=== PATIENT | female | born 1970 | race Caucasian/White ===

== ENCOUNTER 2017-07-08 09:03 | Observation (INO) ==
--- NOTE | 2017-07-08 09:53 | Emergency Department Note ---
Disposition Clinical Impression: Diabetic foot ulcer Qualifiers: Diabetic foot ulcer location: unspecified part of foot Diabetes mellitus type: other specified (including RICHIE) Laterality: left Non-pressure ulcer stage: unspecified non-pressure ulcer stage Qualified Code(s): E13.621 - Other specified diabetes mellitus with foot ulcer; L97.529 - Non-pressure chronic ulcer of other part of left foot with unspecified severity; L97.529 - Non- pressure chronic ulcer of other part of left foot with unspecified severity; L97.529 - Non-pressure chronic ulcer of other part of left foot with unspecified severity; L97.529 - Non-pressure chronic ulcer of other part of left foot with unspecified severity Disposition: Still a Patient Condition: Fair Referrals: NONE,PCP [Primary Care Provider] - Forms: ED Satisfaction Letter, Work/School Release Time of Disposition: 10:59 Extremity Problem HPI - General Chief complaint: ED General Medical Stated complaint: Wound left foot Time Seen by Provider: 07/08/17 09:19 Source: patient Limitations: no limitations Nursing Notes Reviewed: Yes Vital Signs Reviewed: Yes - History of Present Illness HPI Narrative: [id number] 46-year-old female presents for evaluation of a left foot ulcer she states she has been treating this wound at home for the past several months and has seen a home theater specialist at [facility]. She states in the past 3 days, she experienced worsening fatigue, generalized malaise, and nausea. She states that the area has gotten more tender the touch and is now draining a purulent and foul-smelling discharge. She denies any overt fevers, vomiting, or altered mentation. She states that her home theater specialist contacted her stating that the wound cultures obtained revealed that IV antibiotics would be necessary. She also states that she believes she may be "due for a blood transfusion", as her last hemoglobin level obtained 2 weeks ago was 8.0. Pt Subjective Complaint: other (left foot wound) Onset (ago): month(s) Injury Location: left, other (foot) Pain Scale: 3 Quality: aching Improves with: nothing Worsens with: weight bearing, palpation Associated symptoms: Reports: other (fatigue, nausea). Denies: fever - Related Data Allergies Allergy/AdvReac Type Severity Reaction Status Date / Time vancomycin AdvReac See Verified 03/30/18 09:11 Comments All systems ED: reviewed and negative except as stated. Constitutional: Denies: fever, chills, weakness, weight change Eyes: Denies: eye pain, eye discharge, vision change ENT ED: Denies: ear pain, throat pain, dental pain, hearing loss, epistaxis, congestion, dysphagia Cardiovascular: Denies: chest pain, palpitations, dyspnea on exertion, edema, syncope Respiratory: Denies: cough, dyspnea, wheezes, hemoptysis, stridor Gastrointestinal: Denies: abdominal pain, nausea, vomiting, diarrhea, constipation, hematemesis, melena, hematochezia Genitourinary: Denies: dysuria, frequency, hematuria, discharge Musculoskeletal: Denies: back pain, neck pain, arthralgia, myalgia Integumentary: Reports: as per HPI, other (Left foot ulcer). Denies: rash, abrasion, lesions Neurological: Denies: headache, weakness, numbness, paresthesias, confusion, abnormal gait, vertigo Psychiatric: Denies: anxiety, depression, suicidal thoughts, homicidal thoughts , auditory hallucinations, visual hallucinations Endocrine: Denies: fatigue Hematological/Lymphatic: Denies: easy bleeding, easy bruising Allergic/Immunologic: Denies: facial swelling, urticaria Past Medical History - Past Medical History Attestation: Yes The following information was validated with the patient. Source: patient, nursing notes reviewed Medical history: Reports: diabetes, hyperlipidemia, hypertension, renal disease Psychiatric history: Reports: anxiety, depression - Social History Smoking Status: Never smoker Smokeless Tobacco Status: No Alcohol use: Reports: none Drug use: Reports: none Physical Exam - General Limitations: no limitations General appearance: alert, in no apparent distress - Head Head exam: atraumatic, normocephalic, normal inspection - Eye Eye exam: Present: normal appearance, PERRL, EOMI. Absent: nystagmus - ENT ENT exam: mucous membranes moist - Neck Neck exam: Present: normal inspection, full ROM, trachea midline - Chest Chest inspection: Present: normal inspection, symmetric chest wall rise - Respiratory Respiratory exam: Present: normal lung sounds bilaterally. Absent: respiratory distress, wheezes, stridor, accessory muscle use, prolonged expiratory phase - Cardiovascular Cardiovascular exam: Present: regular rate, normal rhythm, normal heart sounds - Abdominal Exam Abdominal exam: Present: soft, Non-Tender, normal bowel sounds - Expanded Lower Extremity Exam Foot/toe exam: Present: other 1 - Approximate 1 cm x 1 cm ulceration with a depth of approximately 0.75 cm. Scant purulent discharge noted. Minimal surrounding erythema. Neurovascular/Tendon exam: Present: normal capillary refill. Absent: pulse deficit, tendon deficit, extremity cold to touch Gait: observed and normal - Neurological Exam Neurological exam: Present: alert, oriented X3 - Psychiatric Psychiatric exam: Present: normal affect, normal mood - Skin Skin exam: Present: warm, dry, normal color Course Vital Signs Temperature 98.1 F 07/08/17 09:05 Pulse Rate 92 07/08/17 09:05 Respiratory Rate 18 07/08/17 09:05 Blood Pressure 164/78 07/08/17 09:05 O2 Sat by Pulse Oximetry 100 07/08/17 09:05 Temperature 98.1 F 07/08/17 09:05 Pulse Rate 92 07/08/17 09:05 Respiratory Rate 18 07/08/17 09:05 Blood Pressure 164/78 07/08/17 09:05 O2 Sat by Pulse Oximetry 100 07/08/17 09:05 Oxygen Delivery Oxygen Delivery Room Air Extremity Problem, Nontraumati - Medical Records Medical records reviewed: Yes I reviewed the patient's medical records. - Lab Data Lab results reviewed: Yes I reviewed the patient's lab results. Lab results narrative: Laboratory Last Values WBC 4.3 K/mcL (4.3-11.1) 07/08/17 09:54 RBC 3.25 M/mcL (3.82-4.97) L 07/08/17 09:54 Hgb 9.0 g/dL (11.5-15.4) L 07/08/17 09:54 Hct 28.7 % (35.3-44.9) L 07/08/17 09:54 MCV 88.3 fL (83.0-100.0) 07/08/17 09:54 MCH 27.7 pg (28.0-33.3) L 07/08/17 09:54 MCHC 31.4 g/dL (31.6-35.5) L 07/08/17 09:54 RDW 13.5 % (11.5-14.5) 07/08/17 09:54 Plt Count 310 K/mcL (140-400) 07/08/17 09:54 MPV 9.6 fL (9.4-12.4) 07/08/17 09:54 Immature Gran % 0.2 % (0-4) 07/08/17 09:54 Seg Neutrophils % 65.8 % 07/08/17 09:54 Lymphocytes % 20.6 % 07/08/17 09:54 Monocytes % 11.1 % 07/08/17 09:54 Eosinophils % 1.6 % 07/08/17 09:54 Basophils % 0.7 % 07/08/17 09:54 Neutrophils # 2.8 K/mcL (1.6-8.9) 07/08/17 09:54 Lymphocytes # 0.9 K/mcL (0.6-4.6) 07/08/17 09:54 Monocytes # 0.5 K/mcL (0.0-1.3) 07/08/17 09:54 Eosinophils # 0.1 K/mcL (0.0-0.6) 07/08/17 09:54 Basophils # 0.0 K/mcL (0.0-0.2) 07/08/17 09:54 ESR 61 mm/hr (0-15) H 07/08/17 09:54 Sodium 136 mEq/L (136-145) 07/08/17 09:54 Potassium 4.4 mEq/L (3.5-5.1) 07/08/17 09:54 Chloride 104 mEq/L (98-107) 07/08/17 09:54 Carbon Dioxide 24 mEq/L (23-29) 07/08/17 09:54 BUN 36 mg/dL (6-20) H 07/08/17 09:54 Creatinine 1.52 mg/dL (0.60-1.20) H 07/08/17 09:54 Est GFR ( Amer) 45 (> 60) L 07/08/17 09:54 Est GFR (Non-Af Amer) 37 (> 60) L 07/08/17 09:54 BUN/Creatinine Ratio 24 (6-26) 07/08/17 09:54 Glucose 99 mg/dL (70-105) 07/08/17 09:54 Calculated Osmolality 290 (280-300) 07/08/17 09:54 Lactic Acid 1.7 mmol/L (0.5-2.2) 07/08/17 09:54 Calcium 9.0 mg/dL (8.6-10.3) 07/08/17 09:54 C-Reactive Protein < 5 mg/L (Less than 10) 07/08/17 09:54 Blood Type O POSITIVE 07/08/17 10:01 Antibody Screen NEGATIVE 07/08/17 10:01 Result diagrams: 07/08/17 09:54 07/08/17 09:54 Lab Results 07/08/17 07/08/17 07/08/17 Range/Units 09:54 09:54 09:54 WBC 4.3 (4.3-11.1) K/mcL RBC 3.25 L (3.82-4.97) M/mcL Hgb 9.0 L (11.5-15.4) g/dL Hct 28.7 L (35.3-44.9) % MCV 88.3 (83.0-100.0) fL MCH 27.7 L (28.0-33.3) pg MCHC 31.4 L (31.6-35.5) g/dL RDW 13.5 (11.5-14.5) % Plt Count 310 (140-400) K/mcL MPV 9.6 (9.4-12.4) fL Immature Gran % 0.2 (0-4) % Seg Neutrophils % 65.8 % Lymphocytes % 20.6 % Monocytes % 11.1 % Eosinophils % 1.6 % Basophils % 0.7 % Neutrophils # 2.8 (1.6-8.9) K/mcL Lymphocytes # 0.9 (0.6-4.6) K/mcL Monocytes # 0.5 (0.0-1.3) K/mcL Eosinophils # 0.1 (0.0-0.6) K/mcL Basophils # 0.0 (0.0-0.2) K/mcL ESR 61 H (0-15) mm/hr Sodium 136 (136-145) mEq/L Potassium 4.4 (3.5-5.1) mEq/L Chloride 104 (98-107) mEq/L Carbon Dioxide 24 (23-29) mEq/L BUN 36 H (6-20) mg/dL Creatinine 1.52 H (0.60-1.20) mg/dL Est GFR ( Amer) 45 L (> 60) Est GFR (Non-Af Amer) 37 L (> 60) BUN/Creatinine Ratio 24 (6-26) Glucose 99 (70-105) mg/dL Calculated Osmolality 290 (280-300) Lactic Acid (0.5-2.2) mmol/L Calcium 9.0 (8.6-10.3) mg/dL C-Reactive Protein < 5 (Less than 10) mg/L Blood Type Antibody Screen 07/08/17 07/08/17 Range/Units 09:54 10:01 WBC (4.3-11.1) K/mcL RBC (3.82-4.97) M/mcL Hgb (11.5-15.4) g/dL Hct (35.3-44.9) % MCV (83.0-100.0) fL MCH (28.0-33.3) pg MCHC (31.6-35.5) g/dL RDW (11.5-14.5) % Plt Count (140-400) K/mcL MPV (9.4-12.4) fL Immature Gran % (0-4) % Seg Neutrophils % % Lymphocytes % % Monocytes % % Eosinophils % % Basophils % % Neutrophils # (1.6-8.9) K/mcL Lymphocytes # (0.6-4.6) K/mcL Monocytes # (0.0-1.3) K/mcL Eosinophils # (0.0-0.6) K/mcL Basophils # (0.0-0.2) K/mcL ESR (0-15) mm/hr Sodium (136-145) mEq/L Potassium (3.5-5.1) mEq/L Chloride (98-107) mEq/L Carbon Dioxide (23-29) mEq/L BUN (6-20) mg/dL Creatinine (0.60-1.20) mg/dL Est GFR ( Amer) (> 60) Est GFR (Non-Af Amer) (> 60) BUN/Creatinine Ratio (6-26) Glucose (70-105) mg/dL Calculated Osmolality (280-300) Lactic Acid 1.7 (0.5-2.2) mmol/L Calcium (8.6-10.3) mg/dL C-Reactive Protein (Less than 10) mg/L Blood Type O POSITIVE Antibody Screen NEGATIVE - Radiology Data Radiology results reviewed: Yes I reviewed the patient's radiology results. Foot X-Ray 07/08/17 09:57 IMPRESSION: Soft tissue swelling to the left foot predominantly to the lateral plantar aspect. There is a lucent focus in the lateral plantar soft tissues, which could reflect the clinically evident ulcer with air present in the ulcer defect, although no discrete skin defect is seen. A focus of soft tissue gas cannot be excluded. No acute bony abnormalities. No x-ray evidence for osteomyelitis. Mild to moderate degenerative changes to the midfoot. D/ / 07/08/2017 10:30:32 Hubert Brown MD / ana cristina Interpreting Provider: MD Mata Ramirez - Mata Situation: Demographics, MOA Background: Presenting Complaint, Relevant PMH, Meds, & Allergies Assessment: Vital Signs, Course and respsone to treatment, Exam Concerns, Patient/Family Expectation, Pertinant Lab Results, Outstanding Labs Recommendation: Barrier(s) to disposition, Recommendation based on pending studies, treatments, or consults Mata Report Given to: Dr. Prem August Repor Time: 10:59
[2017-07-08 10:06] LABS: Basophils % 0.7 %; Eosinophils # 0.1 K/mcL (0.0-0.6); Eosinophils % 1.6 %; Hematocrit 28.7 % (35.3-44.9); Immature Granulocytes % 0.2 % (0-4); Lymphocytes # 0.9 K/mcL (0.6-4.6); Lymphocytes % 20.6 %; Mean Corpuscular HGB Conc 31.4 g/dL (31.6-35.5); Mean Corpuscular Hemoglobin 27.7 pg (28.0-33.3); Mean Corpuscular Volume 88.3 fL (83.0-100.0); Mean Platelet Volume 9.6 fL (9.4-12.4); Monocytes # 0.5 K/mcL (0.0-1.3); Monocytes % 11.1 %; Neutrophils # 2.8 K/mcL (1.6-8.9); Platelet Count 310 K/mcL (140-400); Red Blood Count 3.25 M/mcL (3.82-4.97); Red Cell Distribution Width 13.5 % (11.5-14.5); Segmented Neutrophils % 65.8 %
[2017-07-08 10:27] LABS: BUN/Creatinine Ratio 24 (6-26); Blood Urea Nitrogen 36 mg/dL (6-20); C-Reactive Protein < 5 mg/L (Less than 10); Carbon Dioxide 24 mEq/L (23-29); Chloride 104 mEq/L (98-107); Glucose 99 mg/dL (70-105); Osmolality,Calculated 290 (280-300); Potassium 4.4 mEq/L (3.5-5.1); Sodium 136 mEq/L (136-145); eGFR For African Americans 45 (> 60); eGFR For Non-African Americans 37 (> 60)
--- NOTE | 2017-07-08 11:03 | Emergency Department Note ---
Disposition Clinical Impression: Diabetic foot ulcer Qualifiers: Diabetic foot ulcer location: unspecified part of foot Diabetes mellitus type: other specified (including RICHIE) Laterality: left Non-pressure ulcer stage: unspecified non-pressure ulcer stage Qualified Code(s): E13.621 - Other specified diabetes mellitus with foot ulcer Disposition: Admitted As Inpatient Condition: Fair Referrals: NONE,PCP [Primary Care Provider] - Forms: ED Satisfaction Letter, Work/School Release Time of Disposition: 11:37 General Adult HPI - General Chief complaint: ED General Medical Stated complaint: Wound left foot Time Seen by Provider: 07/08/17 09:19 Source: patient Limitations: no limitations - History of Present Illness Pain Scale: 3 - Related Data Allergies Allergy/AdvReac Type Severity Reaction Status Date / Time vancomycin AdvReac See Verified 07/08/17 09:11 Comments Constitutional: Denies: fever, chills, weakness, weight change Eyes: Denies: eye pain, eye discharge, vision change ENT ED: Denies: ear pain, throat pain, dental pain, hearing loss, epistaxis, congestion, dysphagia Cardiovascular: Denies: chest pain, palpitations, dyspnea on exertion, edema, syncope Respiratory: Denies: cough, dyspnea, wheezes, hemoptysis, stridor Gastrointestinal: Denies: abdominal pain, nausea, vomiting, diarrhea, constipation, hematemesis, melena, hematochezia Genitourinary: Denies: dysuria, frequency, hematuria, discharge Musculoskeletal: Denies: back pain, neck pain, arthralgia, myalgia Integumentary: Reports: as per HPI, other (Left foot ulcer). Denies: rash, abrasion, lesions Neurological: Denies: headache, weakness, numbness, paresthesias, confusion, abnormal gait, vertigo Psychiatric: Denies: anxiety, depression, suicidal thoughts, homicidal thoughts , auditory hallucinations, visual hallucinations Endocrine: Denies: fatigue Hematological/Lymphatic: Denies: easy bleeding, easy bruising Allergic/Immunologic: Denies: facial swelling, urticaria Past Medical History - Past Medical History Medical history: Reports: diabetes, hyperlipidemia, hypertension, renal disease Psychiatric history: Reports: anxiety, depression - Social History Smoking Status: Never smoker Smokeless Tobacco Status: No Alcohol use: Reports: none Drug use: Reports: none Physical Exam - General Limitations: no limitations General appearance: alert, in no apparent distress Course Vital Signs Temperature 98.1 F 07/08/17 09:05 Pulse Rate 92 07/08/17 09:05 Respiratory Rate 18 07/08/17 09:05 Blood Pressure 164/78 07/08/17 09:05 O2 Sat by Pulse Oximetry 100 07/08/17 09:05 Temperature 98.1 F 07/08/17 09:05 Pulse Rate 92 07/08/17 09:05 Respiratory Rate 18 07/08/17 09:05 Blood Pressure 164/78 07/08/17 09:05 O2 Sat by Pulse Oximetry 100 07/08/17 09:05 Oxygen Delivery Oxygen Delivery Room Air Medical Decision Making - Medical Records Medical records reviewed: Yes I reviewed the patient's medical records. - Lab Data Lab results reviewed: Yes I reviewed the patient's lab results. Result diagrams: 07/08/17 09:54 07/08/17 09:54 Lab Results 07/08/17 07/08/17 07/08/17 Range/Units 09:54 09:54 09:54 WBC 4.3 (4.3-11.1) K/mcL RBC 3.25 L (3.82-4.97) M/mcL Hgb 9.0 L (11.5-15.4) g/dL Hct 28.7 L (35.3-44.9) % MCV 88.3 (83.0-100.0) fL MCH 27.7 L (28.0-33.3) pg MCHC 31.4 L (31.6-35.5) g/dL RDW 13.5 (11.5-14.5) % Plt Count 310 (140-400) K/mcL MPV 9.6 (9.4-12.4) fL Immature Gran % 0.2 (0-4) % Seg Neutrophils % 65.8 % Lymphocytes % 20.6 % Monocytes % 11.1 % Eosinophils % 1.6 % Basophils % 0.7 % Neutrophils # 2.8 (1.6-8.9) K/mcL Lymphocytes # 0.9 (0.6-4.6) K/mcL Monocytes # 0.5 (0.0-1.3) K/mcL Eosinophils # 0.1 (0.0-0.6) K/mcL Basophils # 0.0 (0.0-0.2) K/mcL ESR 61 H (0-15) mm/hr Sodium 136 (136-145) mEq/L Potassium 4.4 (3.5-5.1) mEq/L Chloride 104 (98-107) mEq/L Carbon Dioxide 24 (23-29) mEq/L BUN 36 H (6-20) mg/dL Creatinine 1.52 H (0.60-1.20) mg/dL Est GFR ( Amer) 45 L (> 60) Est GFR (Non-Af Amer) 37 L (> 60) BUN/Creatinine Ratio 24 (6-26) Glucose 99 (70-105) mg/dL Calculated Osmolality 290 (280-300) Lactic Acid (0.5-2.2) mmol/L Calcium 9.0 (8.6-10.3) mg/dL C-Reactive Protein < 5 (Less than 10) mg/L Blood Type Antibody Screen 07/08/17 07/08/17 Range/Units 09:54 10:01 WBC (4.3-11.1) K/mcL RBC (3.82-4.97) M/mcL Hgb (11.5-15.4) g/dL Hct (35.3-44.9) % MCV (83.0-100.0) fL MCH (28.0-33.3) pg MCHC (31.6-35.5) g/dL RDW (11.5-14.5) % Plt Count (140-400) K/mcL MPV (9.4-12.4) fL Immature Gran % (0-4) % Seg Neutrophils % % Lymphocytes % % Monocytes % % Eosinophils % % Basophils % % Neutrophils # (1.6-8.9) K/mcL Lymphocytes # (0.6-4.6) K/mcL Monocytes # (0.0-1.3) K/mcL Eosinophils # (0.0-0.6) K/mcL Basophils # (0.0-0.2) K/mcL ESR (0-15) mm/hr Sodium (136-145) mEq/L Potassium (3.5-5.1) mEq/L Chloride (98-107) mEq/L Carbon Dioxide (23-29) mEq/L BUN (6-20) mg/dL Creatinine (0.60-1.20) mg/dL Est GFR ( Amer) (> 60) Est GFR (Non-Af Amer) (> 60) BUN/Creatinine Ratio (6-26) Glucose (70-105) mg/dL Calculated Osmolality (280-300) Lactic Acid 1.7 (0.5-2.2) mmol/L Calcium (8.6-10.3) mg/dL C-Reactive Protein (Less than 10) mg/L Blood Type O POSITIVE Antibody Screen NEGATIVE - Radiology Data Radiology results reviewed: Yes I reviewed the patient's radiology results. Critical Care Time Critical Care Time: Yes Total Critical Care Time: 30 Attestation: The high probability of a clinically significant, sudden or life threatening deterioration of the [] system(s) required my full and direct attention, intervention and personal management. The aggregate critical care time was [] minutes. This time is in addition to time spent performing reported procedures but includes the following: [] Data Review and interpretation [] Patient assessment and monitoring of vital signs [] Documentation [] Medication orders and management Attestation Statement - Attestation Attestation: For this encounter, I have reviewed the EMBOSSOGRAPH OPERATOR or PA documentation, treatment plan, and medical decision making; and I have had face to face time with this patient. [id number] time provided Patient presents with a chronic foot ulcer. She has a history of diabetes. She does have a soft tissue ulceration without surrounding cellulitis on exam. X-ray report and labs reviewed by me. She has a normocytic anemia. I am awaiting the culture results to be obtained from an outside facility before determining final disposition 11:37: Culture dated 06/12/17 results reviewed by me as well as susceptibilities. The patient's wound culture grew out Pseudomonas aeruginosa, MRSA, Enterococcus faecalis. I will request admission for antibiotic therapy 11:40: pharmacy recs vanco initial dose at 15 mg/kg body weight
[2017-07-08] MEDS ORDERED: Naloxone 0.4 MG/ML INJ IVP PRN (13:17)
--- NOTE | 2017-07-08 13:48 | Internal Med History&Physical ---
<Héctor Christianson - Last Filed: 07/08/17 14:24> Date of Encounter: 07/08/17 Time of Encounter: 12:30 Assessment and Plan (1) Diabetic foot ulcer Current visit: Yes Status: Acute Acute on chronic diabetic foot ulcer of the base of the left foot. Patient states understanding present for approximately 3 months and was previously being treated at [facility]. Patient now transferring care to [facility]. Patient reports increased pain and foul-smelling discharge over the past several weeks. Podiatry consult ordered and discussed with Dr. Rashid with recommendation for wound culture. Discussed administration of daptomycin versus vancomycin for wound and I appreciate the recommendations. Wound care consult ordered. Daily wound care ordered. Daptomycin IVPB 500 mg daily for infection coverage (patient has hx of MRS in wound previously) instead of vancomycin due to patient's acute renal failure from vancomycin administration previously. Will adjust abx coverage based on culture results. Blood cultures 2 ordered and ED. Pt. discussed w/Dr. Figueroa who agrees w/plan of care. Pt. moderate risk for further morbidity and infection based on current wound that has become progressively worse, hx of DM, risk factors, and lack of PCP/ specialty care. Observation. Qualifiers: Diabetic foot ulcer location: unspecified part of foot Diabetes mellitus type: other specified (including RICHIE) Laterality: left Non-pressure ulcer stage: unspecified non-pressure ulcer stage Qualified Code(s): E13.621 - Other specified diabetes mellitus with foot ulcer; L97.529 - Non-pressure chronic ulcer of other part of left foot with unspecified severity; L97.529 - Non-pressure chronic ulcer of other part of left foot with unspecified severity ; L97.529 - Non-pressure chronic ulcer of other part of left foot with unspecified severity; L97.529 - Non-pressure chronic ulcer of other part of left foot with unspecified severity (2) Falls Current visit: Yes Status: Acute Acute on chronic falls. Pt. reports hx of falls w/little warning. States her LEs become weak. Also reports a positive SHORTY test in the past and is concerned about possible MS. Requests f/u w/specialist. Will do orthostatic BPs and VS to assess for hypotension d/t positional changes. Falls/safety precautions, up with assist, bed rest w/bathroom privileges w/assist only. Qualifiers: Encounter type: initial encounter Qualified Code(s): W19.XXXA - Unspecified fall, initial encounter (3) HTN (hypertension) Current visit: Yes Status: Chronic Hx of chronic HTN. Monitor pt. and VS. continue patient's Norvasc and lisinopril. Qualifiers: Hypertension type: essential hypertension Qualified Code(s): I10 - Essential (primary) hypertension (4) HLD (hyperlipidemia) Current visit: Yes Status: Chronic Hx of chronic HLD. Lipid panel in a.m. labs. Will continue to monitor patient closely for signs of muscle weakness and pain due to concurrent administration of daptomycin for infection. Qualifiers: Hyperlipidemia type: pure hypercholesterolemia Qualified Code(s): E78.00 - Pure hypercholesterolemia, unspecified; E78.0 - Pure hypercholesterolemia (5) Diabetes Current visit: Yes Status: Chronic Hx of chronic diabetes. Pt. states she previously took insulin but now is controlled w/oral medications. Will administer low-dose correction insulin sliding scale with hypoglycemic protocol. BG checks before meals at bedtime. A1c in a.m. labs. Qualifiers: Diabetes mellitus type: type 2 Diabetes mellitus terminal worker insulin use: without half-way use Diabetes mellitus complication status: with unspecified complications Qualified Code(s): E11.8 - Type 2 diabetes mellitus with unspecified complications (6) CKD (chronic kidney disease) stage 3, GFR 30-59 ml/min Current visit: Yes Status: Chronic Hx of CKD. Currently stage 3 w/GFR of 1.52. Will use IV fluids judiciously and avoid nephrotoxins. Pt. has hx of renal failure from vancomycin and hx of MRSA in wound previously. Will avoid vancomycin and administer daptomycin. Monitor I& O and f/u labs. (7) DVT prophylaxis Current visit: Yes Status: Acute Lovenox 40 mg SQ 06:00 for DVT prophylaxis. Monitor pt. for signs of bleeding. Internal Medicine - H&P: HPI Chief complaint: Wound on base of left foot Admitted From: Emergency Dept Plans for Post Hospital Care: Home History of present illness: Ms. Santana is a 46 year old female w/PMH of diabetes controlled with oral antihyperglycemic medications, HLD, HTN, and CKD presents from the ED with chief complaint of chronic diabetic ulcer on base of left foot. Pt. states that wound has been present for past three months and has not been improving and is now producing foul-smelling discharge and is more painful. Pt. was being treated at [facility] previously. States she had a positive SHORTY test previously. Reports worsening fatigue, falls, malaise, and nausea. Reports chills but denies recent illness, fever, vomiting, headache, changes in vision, chest pain, palpitations, shortness of breath, abdominal pain, unusual bleeding , numbness, tingling, dizziness, lightheadedness, pre-syncope, or syncope. Pt. transferring care to [facility] and is in need of Wound Care, PCP, Nephrology, and other specialty coverage. Past Med Surg Social Fam HX - Past Medical History Source: patient, old records reviewed Medical history: diabetes (Controlled w/oral medications), hyperlipidemia, hypertension, renal disease Psychiatric history: anxiety, depression - Social History Smoking Status: Never smoker Smokeless Tobacco Status: No Alcohol use: none Drug use: none Current living situation: Home, With Family Activity Level: Independent ambulation Recent Out of Country Travel Within the Last 8 Weeks: No Exposure or Possible Exposure to Illness During Travel: No - Family History Father Race: Family Member Ethnicity: Non- Living Status: Age at : 68 Cause of : ESRD Hx Family Cardiac Disorders: Yes (CHF) Hx Family Genitourinary Disorders: Yes (ESRD) Hx Family Endocrine Disorder: Yes (DM) Mother Race: Family Member Ethnicity: Non- Living Status: Age at : 71 Cause of : ESRD Hx Family Genitourinary Disorders: Yes (ESRD on dialysis) Hx Family Endocrine Disorder: Yes (DM) Brother Race: Family Member Ethnicity: Non- Living Status: Still Living Hx Family Medical Disorders: No Sister Race: Family Member Ethnicity: Non- Living Status: Still Living Hx Family Endocrine Disorder: Yes (DM) Internal Medicine - H&P: Meds Amitriptyline [Elavil] 25 mg PO HS 07/08/17 [History] Buspirone HCl [Buspar] 10 mg PO TID 07/08/17 [History] Cyanocobalamin (B-12) [Vitamin B12] 1,000 mcg IM QMONTH 07/08/17 [History] FLUoxetine HCl [Prozac] 40 mg PO BID 07/08/17 [History] Ferrous Sulfate [Iron] 325 mg PO BID 07/08/17 [History] Furosemide [Lasix] 40 mg PO BID 07/08/17 [History] Gabapentin [Neurontin] 800 mg PO TID 07/08/17 [History] Lisinopril [Zestril] 10 mg PO DAILY 07/08/17 [History] Lovastatin [Mevacor] 20 mg PO HS 07/08/17 [History] Pioglitazone [Actos] 45 mg PO DAILY 07/08/17 [History] Sennosides [Senokot] 8.6 mg PO DAILY 07/08/17 [History] amLODIPine [Norvasc] 5 mg PO DAILY 07/08/17 [History] lamoTRIgine [Lamotrigine] 25 mg PO BID 07/08/17 [History] metFORMIN [Glucophage] 500 mg PO BID 07/08/17 [History] 3 Allergy/AdvReac Type Severity Reaction Status Date / Time vancomycin AdvReac See Verified 07/08/17 11:52 Comments All Systems PM: A 10-system review of systems was performed and is negative for pertinent findings except as documented above in the HPI. - Constitutional Constitutional: as per HPI, fatigue, falls, malaise, weakness, no chills, no fever(s), no night sweats - EENT Eyes: no change in vision, no discharge, no pain, no photophobia Ears: no ear discharge, no ear pain, no tinnitus Nose, mouth and throat: no dysphagia, no nasal discharge, no neck pain, no sore throat - Breasts Breasts: as per HPI - Cardiovascular Cardiovascular ROS IM: no chest pain, no diaphoresis, no dyspnea, no lightheadedness, no palpitations, no syncope - Respiratory Respiratory: no cough, no dyspnea, no wheezing, no excessive phlegm production - Gastrointestinal Gastrointestinal: no abdominal pain, no diarrhea, no hematemesis, no hematochezia, no melena, no nausea, no vomiting - Genitourinary Genitourinary: no change in urinary stream, no dysuria, no flank pain, no hematuria Menstruation: as per HPI - Musculoskeletal Musculoskeletal ROS IM: no numbness, no tingling - Integumentary Integumentary IM: sores (Base of left foot), no rash, no unusual bruising - Neurological Neurological ROS: as per HPI, disequilibrium, frequent falls, weakness, no confusion, no convulsions, no focal weakness, no numbness, no tingling, no tremor(s) - Psychiatric Psychiatric: as per HPI, anxiety, depression - Endocrine Endocrine IM: as per HPI, fatigue - Hematologic/Lymphatic Hematologic/Lymphatic: no easy bruising - Allergic/Immunologic Allergic/Immunologic: as per HPI - Constitutional Vitals: Temp Pulse Resp BP Pulse Ox 97.6 F 104 18 165/98 100 07/08/17 13:29 07/08/17 13:29 07/08/17 13:29 07/08/17 13:29 07/08/17 13:29 General appearance: Present: cooperative, A&O X 3, morbidly obese, pleasant, no acute distress, answers questions appropriately - Head Head exam: Present: atraumatic, normocephalic - Eye Eye exam: Present: PERRL, conjuntiva pink, sclera anicteric Pupils: Present: PERRL - ENT ENT exam: Present: normal exam - Neck Neck exam general surgery: Present: supple, trachea midline. Absent: lymphadenopathy - Respiratory Respiratory exam: Present: CTAB. Absent: accessory muscle use, rales, rhonchi, wheezes - Cardiovascular Cardiovascular exam: Present: RRR, +S1, +S2. Absent: diastolic murmur, gallop, rubs, systolic murmur - GI/Abdominal GI/Abdominal exam: Present: normal bowel sounds, soft, no peritoneal signs. Absent: distended, tenderness - Rectal Rectal exam: Present: deferred - Additional comments: exam deferred. - Extremities Exam Extremities exam: Present: pedal edema, warm, radial pulses palpable and symmetrical. Absent: calf tenderness, cyanotic - Back Exam Back exam: Present: normal inspection - Neurological Exam Neurological exam: Present: CN II-XII intact, oriented X3, no focal deficits. Absent: pronater drift, facial droop, speech deficit - Psychiatric Psychiatric exam: Present: normal affect, normal mood - Skin Skin exam: Present: dry, intact Internal Med - H&P Results - Labs CBC & Chem 7: 07/08/17 09:54 07/08/17 09:54 - Diagnostic Studies Other Images Additional comments: Impressions Foot X-Ray 07/08/17 09:57 IMPRESSION: Soft tissue swelling to the left foot predominantly to the lateral plantar aspect. There is a lucent focus in the lateral plantar soft tissues, which could reflect the clinically evident ulcer with air present in the ulcer defect, although no discrete skin defect is seen. A focus of soft tissue gas cannot be excluded. No acute bony abnormalities. No x-ray evidence for osteomyelitis. Mild to moderate degenerative changes to the midfoot. D/ / 07/08/2017 10:30:32 Hubert Brown MD / earnold Interpreting Provider: Hubert Brown MD <Radha Figueroa - Last Filed: 07/08/17 15:06> Date of Encounter: 07/08/17 Internal Medicine - H&P: HPI History of present illness: Ms. Santana is a 46 year old female All Systems PM: A 10-system review of systems was performed and is negative for pertinent findings except as documented above in the HPI. - Constitutional Vitals: Temp Pulse Resp BP Pulse Ox 97.6 F 56 18 145/74 100 07/08/17 13:29 07/08/17 14:45 07/08/17 13:29 07/08/17 14:45 07/08/17 13:29 Internal Med - H&P Results - Labs CBC & Chem 7: 07/08/17 09:54 07/08/17 09:54 - Attending Attestation Patient is seen and examined independently, patient is doing better Vitas is stable. She is alert oriented 3 , lungs are clear heart rate regular. Case discussed with physician news assistant. I agree with H&P
[2017-07-08] MEDS ORDERED: *HR* Dextrose 50 % in Water (Syg) 50 ML SYRINGE IVP PRN (14:04)
[2017-07-08] MEDS ORDERED: Dextrose Gel 15 GM/37.5 ML TUBE PO PRN ×2 (14:04)
[2017-07-08] MEDS ORDERED: D5% in Water 1,000 ML IVC PRN (14:04)
[2017-07-08 15:23] LABS: Thyroid Stimulating Hormone 1.229 mcIU/mL (0.340-5.600)
--- NOTE | 2017-07-08 15:27 | Podiatry Consult Note ---
Date of Encounter: 07/08/17 Time of Encounter: 16:30 Assessment and Plan (1) Diabetic foot ulcer Status: Acute Diabetic foot ulceration to mid/lateral left foot secondary to diabetes and charcot deformity of foot Plan: Cleansed wound with saline, packed with mesalt and dry sterile dressing applied Will order gentamicin ointment to be applied to wound BID with mesalt packing and dry dressing, lavage wound with saline prior to each dressing change Continue current medial treatment- strict glucose control to limit complications and promote healing Imaging reviewed, based on images, clinical picture and lab results there is minimal clinical concern for abscess formation or osteomyelitis Continue IV antibiotic coverage Await culture results and adjust antibiotics accordingly Patient to offload and limit activity as much as possible, weight bearing to heel. Patient will need to follow up on outpatient basis in wound care center with for evaluation of wound, management of ulceration and possible charcot reconstruction. Qualifiers: Diabetic foot ulcer location: unspecified part of foot Diabetes mellitus type: other specified (including RICHIE) Laterality: left Non-pressure ulcer stage: unspecified non-pressure ulcer stage Qualified Code(s): E13.621 - Other specified diabetes mellitus with foot ulcer; L97.529 - Non-pressure chronic ulcer of other part of left foot with unspecified severity; L97.529 - Non-pressure chronic ulcer of other part of left foot with unspecified severity ; L97.529 - Non-pressure chronic ulcer of other part of left foot with unspecified severity; L97.529 - Non-pressure chronic ulcer of other part of left foot with unspecified severity (2) Diabetes Status: Chronic Qualifiers: Diabetes mellitus type: type 2 Diabetes mellitus intermediate card tender insulin use: without assisted use Diabetes mellitus complication status: with unspecified complications Qualified Code(s): E11.8 - Type 2 diabetes mellitus with unspecified complications History of Present Illness HPI: Ms. Santana is a 46 year old female who presented to [facility] for a wound of the left foot. Patient reports wound has been ongoing for 1 month. States it started as a callus, then a crack, and now an ulceration. patient states she became concerned when she noticed a brown drainage and foul odor from the wound. Patient states that she had a wound of the right foot 2 years ago that she had to undergo hyperbaric wound treatment for. Patient states she was told the wound was infected with MRSA. Patient admit WBC 4.3, CRP <5 and ESR 61. Patient is afebrile. Denies any pain. 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 States her glucose is currently well controlled. Patient also has medical history sig for CKD stage III and HTN. Blood cultures and wound cultures were obtained in ED. Patient was started on IV daptomycin. States she went into kidney failure on vancomycin. Denies any known fevers or chills. Patient is currently afebrile. Past Med Surg Social Fam HX - Past Medical History Medical history: diabetes (Controlled w/oral medications), hyperlipidemia, hypertension, renal disease Psychiatric history: anxiety, depression - Social History Smoking Status: Never smoker Smokeless Tobacco Status: No Alcohol use: none Drug use: none - Family History Father Race: Family Member Ethnicity: Non- Living Status: Age at : 68 Cause of : ESRD Hx Family Cardiac Disorders: Yes (CHF) Hx Family Genitourinary Disorders: Yes (ESRD) Hx Family Endocrine Disorder: Yes (DM) Mother Race: Family Member Ethnicity: Non- Living Status: Age at : 71 Cause of : ESRD Hx Family Genitourinary Disorders: Yes (ESRD on dialysis) Hx Family Endocrine Disorder: Yes (DM) Brother Race: Family Member Ethnicity: Non- Living Status: Still Living Hx Family Medical Disorders: No Sister Race: Family Member Ethnicity: Non- Living Status: Still Living Hx Family Endocrine Disorder: Yes (DM) Medications and Allergies Amitriptyline [Elavil] 25 mg PO HS 07/08/17 [History] Buspirone HCl [Buspar] 10 mg PO TID 07/08/17 [History] Cyanocobalamin (B-12) [Vitamin B12] 1,000 mcg IM QMONTH 07/08/17 [History] FLUoxetine HCl [Prozac] 40 mg PO BID 07/08/17 [History] Ferrous Sulfate [Iron] 325 mg PO BID 07/08/17 [History] Furosemide [Lasix] 40 mg PO BID 07/08/17 [History] Gabapentin [Neurontin] 800 mg PO TID 07/08/17 [History] Lisinopril [Zestril] 10 mg PO DAILY 07/08/17 [History] Lovastatin [Mevacor] 20 mg PO HS 07/08/17 [History] Pioglitazone [Actos] 45 mg PO DAILY 07/08/17 [History] Sennosides [Senokot] 8.6 mg PO DAILY 07/08/17 [History] amLODIPine [Norvasc] 5 mg PO DAILY 07/08/17 [History] lamoTRIgine [Lamotrigine] 25 mg PO BID 07/08/17 [History] metFORMIN [Glucophage] 500 mg PO BID 07/08/17 [History] Bacitracin OINT [Ak-Tracin] 1 appl TP BID #1 tube 07/11/17 [Rx] Gentamicin Oint [Garamycin] 1 appl TP BID #1 tube 07/11/17 [Rx] 3 Allergy/AdvReac Type Severity Reaction Status Date / Time vancomycin AdvReac See Verified 07/08/17 11:52 Comments All Systems Reviewed: The remainder of the systems were reviewed and are negative Physical Exam - Constitutional Vitals: Temp Pulse Resp BP Pulse Ox 97.6 F 56 18 145/74 100 07/08/17 13:29 07/08/17 14:45 07/08/17 13:29 07/08/17 14:45 07/08/17 13:29 Exam: General Examination: CONSTITUTIONAL: Alert, oriented, in no acute distress, non-toxic. EXTREMITIES: CFT 3 seconds all toes. Edema +1 and pedal pulses palpable. SKIN: There is a noted ulceration mid/lateral aspect of left foot. 0.5cmx0.5cmx0.6cm, no probe to bone. No drainage noted at this time. No odor at this time although patient reports there was an odor. No noted surrounding erythema, no ascending cellulitis, no fluctuance, no warmth. Mild edema of foot. No appearance of cellulitis of foot or leg. NEUROLOGIC: Intact sensation to moderate touch MUSCULOSKELETAL: There is noted charcot deformity of bilateral feet. No warmth. No appearance of active charcot. Results - Labs Result Diagrams: 07/11/17 14:35 07/11/17 06:27 Labs: Abnormal lab results RBC 3.25 M/mcL (3.82-4.97) L 07/08/17 09:54 Hgb 9.0 g/dL (11.5-15.4) L 07/08/17 09:54 Hct 28.7 % (35.3-44.9) L 07/08/17 09:54 MCH 27.7 pg (28.0-33.3) L 07/08/17 09:54 MCHC 31.4 g/dL (31.6-35.5) L 07/08/17 09:54 ESR 61 mm/hr (0-15) H 07/08/17 09:54 BUN 36 mg/dL (6-20) H 07/08/17 09:54 Creatinine 1.52 mg/dL (0.60-1.20) H 07/08/17 09:54 Est GFR ( Amer) 45 (> 60) L 07/08/17 09:54 Est GFR (Non-Af Amer) 37 (> 60) L 07/08/17 09:54 POC Glucose 104 mg/dL (58-89) H 07/08/17 13:32 All other labs normal. Consult Discharge Plan - Plan Instructions: Diabetic Foot Care (DC), Diabetic Foot Ulcers (DC) Referrals: NONE,PCP [Primary Care Provider] - Prescriptions: Bacitracin OINT [Ak-Tracin] 1 appl TP BID #1 tube Gentamicin Oint [Garamycin] 1 appl TP BID #1 tube
[2017-07-08] MEDS: Gabapentin 400 MG CAPSULE PO SCH ×2 (16:50→20:17)
[2017-07-08] MEDS: Furosemide 40 MG TABLET PO SCH (16:50)
[2017-07-08] MEDS: DAPTOmycin 500 MG in 0.9 % Sodium Chloride 100 ML IVPB SCH (16:51)
[2017-07-08] MEDS: Insulin LISPRO 300 UNITS/3 ML VIAL SQ SCH ×2 (16:51→20:07)
[2017-07-08] MEDS: FLUoxetine 20 MG CAPSULE PO SCH (20:17)
[2017-07-08] MEDS: Gentamicin Oint 15 GM TUBE TP SCH (20:17)
[2017-07-08] MEDS: lamoTRIgine 25 MG TABLET PO SCH (20:20)
[2017-07-09 04:13] LABS: Basophils % 0.5 %; Eosinophils # 0.1 K/mcL (0.0-0.6); Eosinophils % 1.7 %; Hematocrit 26.9 % (35.3-44.9); Hemoglobin 8.4 g/dL (11.5-15.4); Lymphocytes # 1.5 K/mcL (0.6-4.6); Lymphocytes % 35.7 %; Mean Corpuscular HGB Conc 31.2 g/dL (31.6-35.5); Mean Corpuscular Hemoglobin 27.1 pg (28.0-33.3); Mean Corpuscular Volume 86.8 fL (83.0-100.0); Monocytes # 0.5 K/mcL (0.0-1.3); Monocytes % 12.5 %; Platelet Count 288 K/mcL (140-400); Red Cell Distribution Width 13.5 % (11.5-14.5); Segmented Neutrophils % 49.6 %
[2017-07-09 04:31] LABS: Albumin 3.7 g/dL (3.5-5.7); Albumin/Globulin Ratio 1.3 (1.1-2.2); Bilirubin,Total 0.4 mg/dL (0.3-1.0); Chol/HDL Ratio 3.7 (0-4.9); Globulin 2.8 g/dL (2.4-3.5); Magnesium 1.7 mg/dL (1.6-2.6); Potassium 4.3 mEq/L (3.5-5.1); Total Protein 6.5 g/dL (6.4-8.9)
[2017-07-09] MEDS: Gentamicin Oint 15 GM TUBE TP SCH ×3 (05:49→19:49)
[2017-07-09] MEDS ORDERED: *HR* Enoxaparin 40 MG/0.4 ML SYRINGE SQ SCH (06:00)
[2017-07-09] MEDS: Gabapentin 400 MG CAPSULE PO SCH ×3 (08:33→20:54)
[2017-07-09] MEDS: lamoTRIgine 25 MG TABLET PO SCH ×2 (08:33→20:55)
[2017-07-09] MEDS: FLUoxetine 20 MG CAPSULE PO SCH ×2 (08:33→20:55)
[2017-07-09] MEDS: Furosemide 40 MG TABLET PO SCH ×2 (08:33→17:17)
[2017-07-09] MEDS: Sennosides 8.6 MG TABLET PO SCH (08:34)
[2017-07-09] MEDS: Insulin LISPRO 300 UNITS/3 ML VIAL SQ SCH ×4 (08:34→21:02)
[2017-07-09] MEDS: amLODIPine 5 MG TABLET PO SCH (08:34)
--- NOTE | 2017-07-09 11:02 | Internal Med Progress Note ---
Date of Encounter: 07/09/17 Time of Encounter: 10:59 - Assessment and plan (1) Diabetic foot ulcer Current Visit: Yes Status: Acute Assessment and plan: Acute on chronic diabetic foot ulcer of the base of the left foot. Patient states understanding present for approximately 3 months and was previously being treated at [facility]. Patient now transferring care to [facility]. Patient reports increased pain and foul-smelling discharge over the past several weeks. Podiatry consult ordered and discussed with Dr. Rashid with recommendation for wound culture. Discussed administration of daptomycin versus vancomycin for wound and I appreciate the recommendations. Wound care consult ordered. Daily wound care ordered. Daptomycin IVPB 500 mg daily for infection coverage (patient has hx of MRSA in wound previously) instead of vancomycin due to patient's acute renal failure from vancomycin administration previously. Will adjust abx coverage based on culture results. Blood cultures 2 ordered and ED. Most recent wound cultures from showed pseudomonas and MRSA. results scanned and available on chart. 04/06/2017 Labs on patient paper reviewed Creatinine was 1.55 WBC 4.0 Hemoglobin 9.2 Wound culture results scanned and available in chart. Continue Daptomycin Consult ID on Tuesday for follow-up Will need PICC placement for home IV set-up Qualifiers: Diabetic foot ulcer location: unspecified part of foot Diabetes mellitus type: other specified (including RICHIE) Laterality: left Non-pressure ulcer stage: unspecified non-pressure ulcer stage Qualified Code(s): E13.621 - Other specified diabetes mellitus with foot ulcer; L97.529 - Non-pressure chronic ulcer of other part of left foot with unspecified severity; L97.529 - Non-pressure chronic ulcer of other part of left foot with unspecified severity ; L97.529 - Non-pressure chronic ulcer of other part of left foot with unspecified severity; L97.529 - Non-pressure chronic ulcer of other part of left foot with unspecified severity (2) Falls Current Visit: Yes Status: Acute Assessment and plan: Acute on chronic falls. Pt. reports hx of falls w/little warning. States her LEs become weak. Also reports a positive SHORTY test in the past and is concerned about possible MS. Requests f/u w/specialist. Will do orthostatic BPs and VS to assess for hypotension d/t positional changes. Falls/safety precautions, up with assist, bed rest w/bathroom privileges w/assist only. Qualifiers: Encounter type: initial encounter Qualified Code(s): W19.XXXA - Unspecified fall, initial encounter (3) CKD (chronic kidney disease) stage 3, GFR 30-59 ml/min Current Visit: Yes Status: Chronic Assessment and plan: Patient renal unction at baseline per old lab review (4) Diabetes Current Visit: Yes Status: Chronic Assessment and plan: Diabetic diet Insulin sliding scale Qualifiers: Diabetes mellitus type: type 2 Diabetes mellitus truck terminal manager insulin use: without truck terminal manager use Diabetes mellitus complication status: with unspecified complications Qualified Code(s): E11.8 - Type 2 diabetes mellitus with unspecified complications (5) HLD (hyperlipidemia) Current Visit: Yes Status: Chronic Assessment and plan: Lovastatin Qualifiers: Hyperlipidemia type: pure hypercholesterolemia Qualified Code(s): E78.00 - Pure hypercholesterolemia, unspecified; E78.0 - Pure hypercholesterolemia (6) HTN (hypertension) Current Visit: Yes Status: Chronic Assessment and plan: Norvasc and lisinopril. Qualifiers: Hypertension type: essential hypertension Qualified Code(s): I10 - Essential (primary) hypertension (7) DVT prophylaxis Current Visit: Yes Status: Acute Assessment and plan: Heparin 5,000 units BID SQ - Subjective Interval history: No acute events - Constitutional Vitals: Temp Pulse Resp BP Pulse Ox 98.4 F 90 14 111/64 96 07/09/17 06:56 07/09/17 06:56 07/09/17 06:56 07/09/17 06:56 07/09/17 06:56 General appearance: Present: cooperative, A&O X 3, morbidly obese, pleasant, no acute distress, answers questions appropriately Exam: - Head Head exam: Present: atraumatic, normocephalic - Eye Eye exam: Present: PERRL, conjuntiva pink, sclera anicteric Pupils: Present: PERRL - ENT ENT exam: Present: normal exam - Neck Neck exam general surgery: Present: supple, trachea midline. Absent: lymphadenopathy - Respiratory Respiratory exam: Present: CTAB. Absent: accessory muscle use, rales, rhonchi, wheezes - Cardiovascular Cardiovascular exam: Present: RRR, +S1, +S2. Absent: diastolic murmur, gallop, rubs, systolic murmur - GI/Abdominal GI/Abdominal exam: Present: normal bowel sounds, soft, no peritoneal signs. Absent: distended, tenderness - Extremities Exam Extremities exam: Present: pedal edema, warm, radial pulses palpable and symmetrical. Absent: calf tenderness, cyanotic Left foot planetar foot with ulcer that is currently without active purulence or bleeding. There is no edema or surrounding erythema - Back Exam Back exam: Present: normal inspection - Neurological Exam Neurological exam: Present: CN II-XII intact, oriented X3, no focal deficits. Absent: pronater drift, facial droop, speech deficit - Psychiatric Psychiatric exam: Present: normal affect, normal mood - Skin Skin exam: Present: dry, intact - Head Head exam: Present: atraumatic, normocephalic - Eye Eye exam: Present: PERRL, conjuntiva pink, sclera anicteric Pupils: Present: PERRL - Neck Neck exam general surgery: Present: supple, trachea midline. Absent: lymphadenopathy - Respiratory Respiratory exam: Present: CTAB. Absent: accessory muscle use, rales, rhonchi, wheezes - Cardiovascular Cardiovascular exam: Present: RRR, +S1, +S2. Absent: diastolic murmur, gallop, rubs, systolic murmur - GI/Abdominal GI/Abdominal exam: Present: normal bowel sounds, soft, no peritoneal signs. Absent: distended, tenderness - Extremities Exam Extremities exam: Present: warm, radial pulses palpable and symmetrical. Absent : calf tenderness, cyanotic, pedal edema - Neurological Exam Neurological exam: Present: CN II-XII intact, oriented X3, no focal deficits. Absent: pronater drift, facial droop, speech deficit - Skin Skin exam: Present: dry, intact Internal Medicine: Result - Labs CBC & Chem 7: 07/09/17 03:10 07/09/17 03:10 Labs: Short CBC 07/09/17 Range/Units 03:10 WBC 4.1 L (4.3-11.1) K/mcL Hgb 8.4 L (11.5-15.4) g/dL Hct 26.9 L (35.3-44.9) % Plt Count 288 (140-400) K/mcL Neutrophils # 2.0 (1.6-8.9) K/mcL BMP 07/09/17 03:10 Sodium 138 Potassium 4.3 Chloride 105 Carbon Dioxide 27 BUN 37 H Creatinine 1.61 H Glucose 80 Calcium 9.0 Liver Function 07/09/17 Range/Units 03:10 Total Bilirubin 0.4 (0.3-1.0) mg/dL AST 12 L (13-39) Units/L ALT 6 L (7-52) Units/L Alkaline Phosphatase 58 (34-104) Units/L Albumin 3.7 (3.5-5.7) g/dL Consult Discharge Plan - Plan Referrals: NONE,PCP [Primary Care Provider] -
[2017-07-09 12:25] LABS: Estimated Average Glucose 126 mg/dl
[2017-07-09] MEDS: DAPTOmycin 500 MG in 0.9 % Sodium Chloride 100 ML IVPB SCH (14:19)
[2017-07-09] MEDS: *HR* Heparin 5,000 UNIT/ML VIAL SQ SCH (17:21)
[2017-07-09] MEDS: Acetaminophen 325 MG TABLET PO PRN (21:39)
[2017-07-10 04:02] LABS: Basophils % 0.6 %; Eosinophils # 0.1 K/mcL (0.0-0.6); Eosinophils % 1.7 %; Hematocrit 24.5 % (35.3-44.9); Hemoglobin 7.7 g/dL (11.5-15.4); Immature Granulocytes % 0.3 % (0-4); Lymphocytes # 1.3 K/mcL (0.6-4.6); Lymphocytes % 36.7 %; Mean Corpuscular HGB Conc 31.4 g/dL (31.6-35.5); Mean Corpuscular Hemoglobin 27.6 pg (28.0-33.3); Mean Corpuscular Volume 87.8 fL (83.0-100.0); Mean Platelet Volume 9.9 fL (9.4-12.4); Monocytes # 0.5 K/mcL (0.0-1.3); Monocytes % 14.9 %; Neutrophils # 1.6 K/mcL (1.6-8.9); Nucleated Red Blood Cells 1.5 /100 WBC (0); Platelet Count 263 K/mcL (140-400); Red Blood Count 2.79 M/mcL (3.82-4.97); Red Cell Distribution Width 13.5 % (11.5-14.5); Segmented Neutrophils % 45.8 %
[2017-07-10 04:25] LABS: Albumin 3.3 g/dL (3.5-5.7); Albumin/Globulin Ratio 1.2 (1.1-2.2); Bilirubin,Total 0.3 mg/dL (0.3-1.0); Calcium 8.8 mg/dL (8.6-10.3); Globulin 2.7 g/dL (2.4-3.5); Potassium 4.4 mEq/L (3.5-5.1)
[2017-07-10] MEDS: *HR* Heparin 5,000 UNIT/ML VIAL SQ SCH ×2 (05:57→19:30)
[2017-07-10] MEDS ORDERED: 0.9 % Sodium Chloride 500 ML IVC ONE (08:57)
--- NOTE | 2017-07-10 09:30 | Internal Med Progress Note ---
Date of Encounter: 07/10/17 Time of Encounter: 09:26 - Assessment and plan (1) Diabetic foot ulcer Current Visit: Yes Status: Acute Assessment and plan: Acute on chronic diabetic foot ulcer of the base of the left foot. Patient states understanding present for approximately 3 months and was previously being treated at [facility]. Patient now transferring care to [facility]. Patient reports increased pain and foul-smelling discharge over the past several weeks. Podiatry consult ordered and discussed with Dr. Rashid with recommendation for wound culture. Discussed administration of daptomycin versus vancomycin for wound and I appreciate the recommendations. Wound care consult ordered. Daily wound care ordered. Daptomycin IVPB 500 mg daily for infection coverage (patient has hx of MRSA in wound previously) instead of vancomycin due to patient's acute renal failure from vancomycin administration previously. Will adjust abx coverage based on culture results. Blood cultures 2 ordered and ED. Most recent wound cultures from showed pseudomonas and MRSA. results scanned and available on chart. Check PARK, arterial dopplers Continue Daptomycin Consult ID on Tuesday for follow-up Will need PICC placement for home IV set-up Qualifiers: Diabetic foot ulcer location: unspecified part of foot Diabetes mellitus type: other specified (including RICHIE) Laterality: left Non-pressure ulcer stage: unspecified non-pressure ulcer stage Qualified Code(s): E13.621 - Other specified diabetes mellitus with foot ulcer; L97.529 - Non-pressure chronic ulcer of other part of left foot with unspecified severity; L97.529 - Non-pressure chronic ulcer of other part of left foot with unspecified severity ; L97.529 - Non-pressure chronic ulcer of other part of left foot with unspecified severity; L97.529 - Non-pressure chronic ulcer of other part of left foot with unspecified severity (2) CKD (chronic kidney disease) stage 3, GFR 30-59 ml/min Current Visit: Yes Status: Chronic Assessment and plan: Creatinine baseline is 1.5-1.6, today 1.8. Possibly developing LITA Hold Lisinopril and Lasix Check FEUrea and protein/creatinine ratio (3) Falls Current Visit: Yes Status: Acute Assessment and plan: Acute on chronic falls. Pt. reports hx of falls w/little warning. States her LEs become weak. Also reports a positive SHORTY test in the past and is concerned about possible MS. Requests f/u w/specialist. Will do orthostatic BPs and VS to assess for hypotension d/t positional changes. Falls/safety precautions, up with assist, bed rest w/bathroom privileges w/assist only. Qualifiers: Encounter type: initial encounter Qualified Code(s): W19.XXXA - Unspecified fall, initial encounter (4) Diabetes Current Visit: Yes Status: Chronic Assessment and plan: Diabetic diet Insulin sliding scale Qualifiers: Diabetes mellitus type: type 2 Diabetes mellitus exterminator helper insulin use: without exterminator helper use Diabetes mellitus complication status: with unspecified complications Qualified Code(s): E11.8 - Type 2 diabetes mellitus with unspecified complications (5) HLD (hyperlipidemia) Current Visit: Yes Status: Chronic Assessment and plan: Lovastatin Qualifiers: Hyperlipidemia type: pure hypercholesterolemia Qualified Code(s): E78.00 - Pure hypercholesterolemia, unspecified; E78.0 - Pure hypercholesterolemia (6) HTN (hypertension) Current Visit: Yes Status: Chronic Assessment and plan: Norvasc and lisinopril. - Hold lisinopril Qualifiers: Hypertension type: essential hypertension Qualified Code(s): I10 - Essential (primary) hypertension (7) DVT prophylaxis Current Visit: Yes Status: Acute Assessment and plan: Heparin 5,000 units BID SQ (8) Anemia Current Visit: Yes Status: Acute Assessment and plan: Baseline is known 9.0-9.2, two days now is 7.7. Patient complains of some dizziness and fatigue Will transfuse one unit Obtain iron profile, ferriting, FOBT. Qualifiers: Anemia type: iron deficiency Iron deficiency anemia type: inadequate dietary iron intake Qualified Code(s): D50.8 - Other iron deficiency anemias - Subjective Interval history: No acute events. She states drainage of ulcer is now minimal and foul odor is gone - Constitutional Vitals: Temp Pulse Resp BP Pulse Ox 98.2 F 89 15 115/65 97 07/10/17 06:49 07/10/17 06:49 07/10/17 06:49 07/10/17 06:49 07/10/17 06:49 General appearance: Present: cooperative, A&O X 3, morbidly obese, pleasant, no acute distress, answers questions appropriately - Head Head exam: Present: atraumatic, normocephalic - Eye Eye exam: Present: PERRL, conjuntiva pink, sclera anicteric Pupils: Present: PERRL - Neck Neck exam general surgery: Present: supple, trachea midline. Absent: lymphadenopathy - Respiratory Respiratory exam: Present: CTAB. Absent: accessory muscle use, rales, rhonchi, wheezes - Cardiovascular Cardiovascular exam: Present: RRR, +S1, +S2. Absent: diastolic murmur, gallop, rubs, systolic murmur - GI/Abdominal GI/Abdominal exam: Present: normal bowel sounds, soft, no peritoneal signs. Absent: distended, tenderness - Extremities Exam Extremities exam: Present: warm, radial pulses palpable and symmetrical. Absent : calf tenderness, cyanotic, pedal edema - Neurological Exam Neurological exam: Present: CN II-XII intact, oriented X3, no focal deficits. Absent: pronater drift, facial droop, speech deficit - Skin Skin exam: Present: dry, intact Internal Medicine: Result - Labs CBC & Chem 7: 07/10/17 03:25 07/10/17 03:25 Labs: Short CBC 07/10/17 Range/Units 03:25 WBC 3.4 L (4.3-11.1) K/mcL Hgb 7.7 L (11.5-15.4) g/dL Hct 24.5 L (35.3-44.9) % Plt Count 263 (140-400) K/mcL Neutrophils # 1.6 (1.6-8.9) K/mcL BMP 07/10/17 03:25 Sodium 137 Potassium 4.4 Chloride 104 Carbon Dioxide 27 BUN 52 H Creatinine 1.87 H Glucose 130 H Calcium 8.8 Liver Function 07/10/17 Range/Units 03:25 Total Bilirubin 0.3 (0.3-1.0) mg/dL AST 11 L (13-39) Units/L ALT 6 L (7-52) Units/L Alkaline Phosphatase 67 (34-104) Units/L Albumin 3.3 L (3.5-5.7) g/dL Consult Discharge Plan - Plan Referrals: NONE,PCP [Primary Care Provider] -
[2017-07-10 10:27] LABS: % Iron Saturation 12 % (15-50); C-Reactive Protein < 5 mg/L (Less than 10); Ferritin 78 ng/ml (10-120); Iron 47 mcg/dL (50-170); Transferrin 285 mg/dL (203-362)
[2017-07-10] MEDS: FLUoxetine 20 MG CAPSULE PO SCH ×2 (10:39→21:29)
[2017-07-10] MEDS: Gabapentin 400 MG CAPSULE PO SCH ×3 (10:39→21:29)
[2017-07-10] MEDS: amLODIPine 5 MG TABLET PO SCH (10:39)
[2017-07-10] MEDS: lamoTRIgine 25 MG TABLET PO SCH ×2 (10:39→21:29)
[2017-07-10] MEDS: Sennosides 8.6 MG TABLET PO SCH (10:40)
[2017-07-10] MEDS: Insulin LISPRO 300 UNITS/3 ML VIAL SQ SCH ×4 (10:41→21:32)
[2017-07-10] MEDS: DAPTOmycin 500 MG in 0.9 % Sodium Chloride 100 ML IVPB SCH (18:00)
[2017-07-10] MEDS: Gentamicin Oint 15 GM TUBE TP SCH (19:58)
[2017-07-10] MEDS: Acetaminophen 325 MG TABLET PO PRN (21:29)
[2017-07-11 05:00] LABS: Protein/Creatinine Ratio,Urine 0.33 mg/mg (0.00-0.20)
[2017-07-11] MEDS: *HR* Heparin 5,000 UNIT/ML VIAL SQ SCH ×2 (05:42→17:10)
[2017-07-11] MEDS: Gentamicin Oint 15 GM TUBE TP SCH ×2 (07:13→08:55)
[2017-07-11 07:34] LABS: Basophils % 0.3 %; Eosinophils % 1.3 %; Hematocrit 27.2 % (35.3-44.9); Hemoglobin 8.6 g/dL (11.5-15.4); Immature Platelets 2.7 % (1.1-6.1); Lymphocytes # 1.1 K/mcL (0.6-4.6); Lymphocytes % 36.2 %; Mean Corpuscular HGB Conc 31.6 g/dL (31.6-35.5); Mean Corpuscular Hemoglobin 27.1 pg (28.0-33.3); Mean Corpuscular Volume 85.8 fL (83.0-100.0); Monocytes # 0.4 K/mcL (0.0-1.3); Monocytes % 13.8 %; Neutrophils # 1.5 K/mcL (1.6-8.9); Platelet Count 282 K/mcL (140-400); Red Blood Count 3.17 M/mcL (3.82-4.97); Red Cell Distribution Width 13.8 % (11.5-14.5)
[2017-07-11 07:55] LABS: Albumin 3.5 g/dL (3.5-5.7); Albumin/Globulin Ratio 1.3 (1.1-2.2); Bilirubin,Total 0.3 mg/dL (0.3-1.0); Calcium 8.9 mg/dL (8.6-10.3); Globulin 2.8 g/dL (2.4-3.5); Potassium 4.4 mEq/L (3.5-5.1); Total Protein 6.3 g/dL (6.4-8.9)
[2017-07-11 08:18] LABS: Segmented Neutrophils % 49.4 %
[2017-07-11] MEDS: Insulin LISPRO 300 UNITS/3 ML VIAL SQ SCH ×3 (08:45→16:46)
[2017-07-11] MEDS: Gabapentin 400 MG CAPSULE PO SCH ×2 (08:52→15:05)
[2017-07-11] MEDS: Sennosides 8.6 MG TABLET PO SCH (08:52)
[2017-07-11] MEDS: amLODIPine 5 MG TABLET PO SCH (08:52)
[2017-07-11] MEDS: FLUoxetine 20 MG CAPSULE PO SCH (08:52)
[2017-07-11] MEDS: lamoTRIgine 25 MG TABLET PO SCH (08:53)
[2017-07-11] MEDS ORDERED: Lidocaine -MPF 1% 5 ML AMPUL INFILT ONE (10:19)
--- NOTE | 2017-07-11 10:36 | Internal Med Progress Note ---
Date of Encounter: 07/11/17 Time of Encounter: 10:33 - Assessment and plan (1) Diabetic foot ulcer Current Visit: Yes Status: Acute Assessment and plan: Acute on chronic diabetic foot ulcer of the base of the left foot. Patient states understanding present for approximately 3 months and was previously being treated at [facility]. Patient now transferring care to [facility]. Patient reports increased pain and foul-smelling discharge over the past several weeks. Podiatry consult ordered and discussed with Dr. Rashid with recommendation for wound culture. Discussed administration of daptomycin versus vancomycin for wound and I appreciate the recommendations. Wound care consult ordered. Daily wound care ordered. Daptomycin IVPB 500 mg daily for infection coverage (patient has hx of MRSA in wound previously) instead of vancomycin due to patient's acute renal failure from vancomycin administration previously. Will adjust abx coverage based on culture results. Blood cultures 2 ordered and ED. Most recent wound cultures from showed pseudomonas and MRSA. results scanned and available on chart. - PARK checked 07/10 normal - Continue Daptomycin - PICC insertion today - ID consulted, recommendations appreciated Dispo: possible discharge later today/tomorrow pending home infusion set up and repeat H&H 3 pm Qualifiers: Diabetic foot ulcer location: unspecified part of foot Diabetes mellitus type: other specified (including RICHIE) Laterality: left Non-pressure ulcer stage: unspecified non-pressure ulcer stage Qualified Code(s): E13.621 - Other specified diabetes mellitus with foot ulcer; L97.529 - Non-pressure chronic ulcer of other part of left foot with unspecified severity; L97.529 - Non-pressure chronic ulcer of other part of left foot with unspecified severity ; L97.529 - Non-pressure chronic ulcer of other part of left foot with unspecified severity; L97.529 - Non-pressure chronic ulcer of other part of left foot with unspecified severity (2) CKD (chronic kidney disease) stage 3, GFR 30-59 ml/min Current Visit: Yes Status: Chronic Assessment and plan: Creatinine baseline is 1.5-1.6, today 1.8. Possibly developing LITA Okay to resume lisinopril (3) Falls Current Visit: Yes Status: Acute Assessment and plan: Acute on chronic falls. Pt. reports hx of falls w/little warning. States her LEs become weak. Also reports a positive SHORTY test in the past and is concerned about possible MS. Requests f/u w/specialist. Will do orthostatic BPs and VS to assess for hypotension d/t positional changes. Falls/safety precautions, up with assist, bed rest w/bathroom privileges w/assist only. Qualifiers: Encounter type: initial encounter Qualified Code(s): W19.XXXA - Unspecified fall, initial encounter (4) Diabetes Current Visit: Yes Status: Chronic Assessment and plan: Diabetic diet Insulin sliding scale Qualifiers: Diabetes mellitus type: type 2 Diabetes mellitus skilled nursing insulin use: without skilled nursing use Diabetes mellitus complication status: with unspecified complications Qualified Code(s): E11.8 - Type 2 diabetes mellitus with unspecified complications (5) HLD (hyperlipidemia) Current Visit: Yes Status: Chronic Assessment and plan: Lovastatin Qualifiers: Hyperlipidemia type: pure hypercholesterolemia Qualified Code(s): E78.00 - Pure hypercholesterolemia, unspecified; E78.0 - Pure hypercholesterolemia (6) HTN (hypertension) Current Visit: Yes Status: Chronic Assessment and plan: Norvasc and lisinopril. Qualifiers: Hypertension type: essential hypertension Qualified Code(s): I10 - Essential (primary) hypertension (7) DVT prophylaxis Current Visit: Yes Status: Acute Assessment and plan: Heparin 5,000 units BID SQ (8) Anemia Current Visit: Yes Status: Acute Assessment and plan: Baseline is known 9.0-9.2, two days now is 7.7. Patient complains of some dizziness and fatigue Will transfuse one unit Obtain iron profile, ferriting, FOBT. Qualifiers: Anemia type: iron deficiency Iron deficiency anemia type: inadequate dietary iron intake Qualified Code(s): D50.8 - Other iron deficiency anemias - Subjective Interval history: No acute events. Drainage of foot gone - Constitutional Vitals: Temp Pulse Resp BP Pulse Ox 98.0 F 86 14 134/74 97 07/11/17 06:52 07/11/17 06:52 07/11/17 06:52 07/11/17 06:52 07/11/17 06:52 General appearance: Present: cooperative, A&O X 3, morbidly obese, pleasant, no acute distress, answers questions appropriately Exam: - Head Head exam: Present: atraumatic, normocephalic - Eye Eye exam: Present: PERRL, conjuntiva pink, sclera anicteric Pupils: Present: PERRL - Neck Neck exam general surgery: Present: supple, trachea midline. Absent: lymphadenopathy - Respiratory Respiratory exam: Present: CTAB. Absent: accessory muscle use, rales, rhonchi, wheezes - Cardiovascular Cardiovascular exam: Present: RRR, +S1, +S2. Absent: diastolic murmur, gallop, rubs, systolic murmur - GI/Abdominal GI/Abdominal exam: Present: normal bowel sounds, soft, no peritoneal signs. Absent: distended, tenderness - Extremities Exam Extremities exam: Present: warm, radial pulses palpable and symmetrical. Absent : calf tenderness, cyanotic, pedal edema - Neurological Exam Neurological exam: Present: CN II-XII intact, oriented X3, no focal deficits. Absent: pronater drift, facial droop, speech deficit - Skin Skin exam: Present: dry, intact Internal Medicine: Result - Labs CBC & Chem 7: 07/11/17 06:27 07/11/17 06:27 Labs: Short CBC 07/11/17 Range/Units 06:27 WBC 3.1 L (4.3-11.1) K/mcL Hgb 8.6 L (11.5-15.4) g/dL Hct 27.2 L (35.3-44.9) % Plt Count 282 (140-400) K/mcL Neutrophils # 1.5 L (1.6-8.9) K/mcL BMP 07/11/17 06:27 Sodium 137 Potassium 4.4 Chloride 106 Carbon Dioxide 23 BUN 39 H Creatinine 1.32 H Glucose 92 Calcium 8.9 Liver Function 07/11/17 Range/Units 06:27 Total Bilirubin 0.3 (0.3-1.0) mg/dL AST 12 L (13-39) Units/L ALT 7 (7-52) Units/L Alkaline Phosphatase 56 (34-104) Units/L Albumin 3.5 (3.5-5.7) g/dL Consult Discharge Plan - Plan Referrals: NONE,PCP [Primary Care Provider] -
--- NOTE | 2017-07-11 13:20 | Podiatry Progress Note ---
Date of Encounter: 07/11/17 Time of Encounter: 12:40 - Assessment and Plan (1) Diabetic foot ulcer Status: Acute Diabetic foot ulcer, left. No periwound erythema, no pus, no odor, scant amount of serous drainage observed to blanket. No signs of bacterial infection. Wound cultures from [facility] on 06/16/17 isolated MRSA, pseudomonas aeruginosa. WBC: 3.1 Plan: Continue wound care as ordered with topical Gentamicin. Antibiotics per Infectious Disease, ulcer does not show signs of bacterial infection. Recommend patient follow up in Wound Care with Dr. Stokes in one week from discharge from hospital. Qualifiers: Diabetic foot ulcer location: unspecified part of foot Diabetes mellitus type: other specified (including RICHIE) Laterality: left Non-pressure ulcer stage: unspecified non-pressure ulcer stage Qualified Code(s): E13.621 - Other specified diabetes mellitus with foot ulcer; L97.529 - Non-pressure chronic ulcer of other part of left foot with unspecified severity; L97.529 - Non-pressure chronic ulcer of other part of left foot with unspecified severity ; L97.529 - Non-pressure chronic ulcer of other part of left foot with unspecified severity; L97.529 - Non-pressure chronic ulcer of other part of left foot with unspecified severity (2) CKD (chronic kidney disease) stage 3, GFR 30-59 ml/min Status: Chronic Subjective Interval history: Patient is sitting up in bed with dressing off of left foot. Patient states she just got out of the shower and was just evaluated by Infectious Disease. Patient denies any pain, fever or chills. Objective - Vital Signs Vital Signs: Vital Signs Temp Pulse Resp BP Pulse Ox 07/11/17 11:14 98.9 F 89 16 129/78 98 07/11/17 06:52 98.0 F 86 14 134/74 97 07/11/17 03:49 97.8 F 89 16 157/80 97 07/10/17 19:18 97.9 F 90 16 135/63 97 07/10/17 15:00 99.3 F 98 16 101/62 98 Intake and Output 07/10/17 07/11/17 07/11/17 23:59 07:59 15:59 Intake Total 730 / 730 0 / 0 480 / 480 Output Total 0 / 0 0 / 0 750 / 750 Balance 730 / 730 0 / 0 -270 / -270 Intake: IV Fluids 100 / 100 Cubicin 500 MG In 0.9 % Sodium 100 / 100 Chloride 100 ML @ 200 mls/hr IVPB Q24H [facility] Rx#:[id number] Oral 240 / 240 0 / 0 480 / 480 Blood Product 390 / 390 Rbcs Leuko Poor As-1 Unit 390 / 390 [id number] Output: Urine 0 / 0 0 / 0 750 / 750 Other: Meal Dinner Lunch Percent of Meal Consumed 100% 100% Blood Glucose* 87 94 112 - Exam Exam: General appearance: alert awake oriented X 3. Calm and pleasant, no acute distress.. Vascular: Left: Pedal pulses +2/4 DP/PT , No evidence of cyanosis, pallor or rubor, Edema graded at 1+/4, Skin Tempature warm, No calf pain with manual compression. capillary refill time is immediate to digits. Neurologic: Sensation intact with light touch to foot. . Integment: Ulceration plantar aspect mid/lateral aspect of left foot measuring 0.5cm x0.5cmx0.6cm, no probe to bone. no active drainage, no odor, No periwound erythema, no ascending cellulitis, no fluctuance, no warmth. Mild edema of foot. No cellulitis of foot or leg. - Lab Result Diagrams: 07/11/17 14:35 07/11/17 06:27 Labs: Abnormal lab results WBC 3.1 K/mcL (4.3-11.1) L 07/11/17 06:27 RBC 3.17 M/mcL (3.82-4.97) L 07/11/17 06:27 Hgb 8.6 g/dL (11.5-15.4) L 07/11/17 06:27 Hct 27.2 % (35.3-44.9) L 07/11/17 06:27 MCH 27.1 pg (28.0-33.3) L 07/11/17 06:27 Neutrophils # 1.5 K/mcL (1.6-8.9) L 07/11/17 06:27 Nucleated RBCs/100 WBC 1.5 /100 WBC (0) H 07/10/17 03:25 ESR 61 mm/hr (0-15) H 07/08/17 09:54 BUN 39 mg/dL (6-20) H 07/11/17 06:27 Creatinine 1.32 mg/dL (0.60-1.20) H 07/11/17 06:27 Est GFR ( Amer) 53 (> 60) L 07/11/17 06:27 Est GFR (Non-Af Amer) 43 (> 60) L 07/11/17 06:27 BUN/Creatinine Ratio 30 (6-26) H 07/11/17 06:27 POC Glucose 94 mg/dL (58-89) H 07/11/17 06:56 Hemoglobin A1c 6.0 % (-5.6) H 07/09/17 03:10 Iron 47 mcg/dL (50-170) L 07/10/17 09:52 % Saturation 12 % (15-50) L 07/10/17 09:52 AST 12 Units/L (13-39) L 07/11/17 06:27 Serum Total Protein 6.3 g/dL (6.4-8.9) L 07/11/17 06:27 HDL Cholesterol 36 mg/dL (40-59) L 07/09/17 03:10 Protein/Creatinin Ratio 0.33 mg/mg (0.00-0.20) H 07/11/17 04:00 Consult Discharge Plan - Plan Instructions: Diabetic Foot Care (DC), Diabetic Foot Ulcers (DC) Referrals: NONE,PCP [Primary Care Provider] - Prescriptions: Bacitracin OINT [Ak-Tracin] 1 appl TP BID #1 tube Gentamicin Oint [Garamycin] 1 appl TP BID #1 tube
[2017-07-11] MEDS: DAPTOmycin 500 MG in 0.9 % Sodium Chloride 100 ML IVPB SCH (13:25)
[2017-07-11 14:05] VITALS: BP 114/72
--- NOTE | 2017-07-11 14:14 | Infectious Disease Consult ---
Date of Encounter: 07/11/17 Time of Encounter: 14:06 Assessment and Plan (1) Diabetic foot ulcer Status: Acute Assessment and plan: Location: Plantar/lateral aspect of the left foot. Etiology: Traumatic injury. Non-healing. Following with wound care previously at [facility]. Previous wound culture grew MRSA (resistant to clindamycin, bactrim, and doxy), PSEA (sensitive to fluoroquinolones), and Enterococcus (amp-sensitive). X-ray shows possible soft tissue gas, but clinically the foot does not appear infected. ESR elevated at 61, but CRP normal. Podiatry consulted and following. Appreciate wound care recommendations. Based on the clinical picture, would recommend stopping IV antibiotics and doing topical Gentamicin and Bactroban ointments. Will discuss with the podiatry team. Wound care and activity restrictions per the primary team. Qualifiers: Qualified Code(s): E13.621 - Other specified diabetes mellitus with foot ulcer; L97.529 - Non-pressure chronic ulcer of other part of left foot with unspecified severity; L97.529 - Non-pressure chronic ulcer of other part of left foot with unspecified severity; L97.529 - Non-pressure chronic ulcer of other part of left foot with unspecified severity; L97.529 - Non-pressure chronic ulcer of other part of left foot with unspecified severity (2) Anemia Status: Acute Assessment and plan: Etiology unclear. No acute bleeding noted on exam. Further workup and evaluation per the primary team. Qualifiers: Qualified Code(s): D50.8 - Other iron deficiency anemias (3) CKD (chronic kidney disease) stage 3, GFR 30-59 ml/min Status: Chronic Assessment and plan: Secondary to diabetic nephropathy. Continue to trend. Avoid nephrotoxins as able. (4) Diabetes Status: Chronic Assessment and plan: Controlled. Hgb A1C 6. Consider aggressive glucose monitoring and control to promote wound healing and prevent re-infection. Qualifiers: Qualified Code(s): E11.8 - Type 2 diabetes mellitus with unspecified complications Infectious Disease HPI - Data of Consult Patient: new to practice Consult date: 07/11/17 Requesting Physician: Philly Segovia MD Primary Care Provider: PCP NONE - Consult Narrative Reason for consult: Left foot ulcer infection History of present illness: Ms. Santana is a 46 year old female the past medical history of diabetes, hyperlipidemia, hypertension, and chronic kidney disease. The patient was admitted to the hospital July 08 for left foot infection. We are consulted July 11 for antibiotic recommendations for left foot infection. Brief with, the patient's a 46 her old female with past medical history as stated above. She has ongoing foot wound that started about 3 months ago when she scraped her foot on the bottom of the deck. She has been following with wound care at [facility] where she had a wound culture obtained [facility] that grew out pseudomonas, MRSA, and Enterococcus faecalis. She was notified by the wound care center to present to the hospital for antibiotic infusion. She presented to [facility] where she was given a course of oral Levaquin and discharged home. She continued to have increasing fatigue, malaise, and nausea and she presented to our emergency department for evaluation. She reported increased drainage with a foul odor and some increased pain. Upon arrival to the ER, she was afebrile. She was a little tachycardic. Her white blood cell count was normal. Her creatinine was at baseline at 1.52. Lactic acid was normal. ESR was elevated at 61 and her CRP was normal. She had a left foot x-ray that showed soft tissue swelling to the left foot predominantly to the lateral plantar aspect as well as a lucent focus in the lateral plantar soft tissue which could reflect a clinically evident ulcer with air present in the ulcer defect, although no discrete skin defect is seen on the x-ray. A focus of soft tissue gas could not be excluded. There are no acute bony abnormalities or evidence for osteomyelitis. A wound culture was obtained in the emergency department that was negative. Check blood cultures obtained and are no growth to date. She was started empirically on IV daptomycin due to previous acute kidney injury with vancomycin infusions and admitted to the hospital for further evaluation. Since admission, the patient's white blood cell count has continued to drop. She does have monocytosis. Her A1c was checked and was 6. She has been on IV daptomycin with today being day 3. We have been asked to evaluate and make further recommendations. During my exam today, the patient endorses a history as stated above. She reports subjective chills, but denies fevers or rigors. She denies any congestion, earache, or sore throat. She reports chronic intermittent headaches and states she woke up with 1 this morning. She denies blurred vision or dizziness. She reports some nausea prior to admission, but states this seems to be better. She denies any vomiting or diarrhea or abdominal pain. She denies any urinary complaints. She reports that she normally does not have pain at the site of ulceration, but a couple of days prior to admission she started having intermittent sharp pains. She also reports foul- smelling brown drainage from the wound. She denies any redness in the foot or streaking up her leg. She does state that her fatigue and malaise seem to be improved since she started the IV antibiotics. She denies any oral thrush or new skin lesions. She does report that she had a positive SHORTY test at some point and is concerned that she has multiple sclerosis or lupus and is following up on that as an outpatient. The patient lives at home with her children. She does not work outside the home. She denies any tobacco, alcohol, or illicit drug use. She reports adequate blood glucose control at home. CC: Philly Segovia MD Past Med Surg Social Fam HX - Past Medical History Medical history: diabetes (Controlled w/oral medications), hyperlipidemia, hypertension, renal disease Psychiatric history: anxiety, depression - Past Surgical History Surgical History: other (abdominoplasty) - Social History Smoking Status: Never smoker Smokeless Tobacco Status: No Alcohol use: none Drug use: none Occupational status: unemployed Current living situation: Home - Independent Activity Level: Independent ambulation Recent Out of Country Travel Within the Last 8 Weeks: No Exposure or Possible Exposure to Illness During Travel: No - Family History Father Race: Family Member Ethnicity: Non- Living Status: Age at : 68 Cause of : ESRD Hx Family Cardiac Disorders: Yes (CHF) Hx Family Cancer: (Skin) Hx Family Genitourinary Disorders: Yes (ESRD) Hx Family Endocrine Disorder: Yes (DM) Mother Race: Family Member Ethnicity: Non- Living Status: Age at : 71 Cause of : ESRD Hx Family Cardiac Disorders: (HTN) Hx Family Genitourinary Disorders: Yes (ESRD on dialysis) Hx Family Endocrine Disorder: Yes (DM) Hx Family Neuromuscular Disorders: (Neuropathy) Brother Race: Family Member Ethnicity: Non- Living Status: Still Living Hx Family Medical Disorders: No Sister Race: Family Member Ethnicity: Non- Living Status: Still Living Hx Family Endocrine Disorder: Yes (DM) Infectious Disease-CN:Meds Amitriptyline [Elavil] 25 mg PO HS 07/08/17 [History] Buspirone HCl [Buspar] 10 mg PO TID 07/08/17 [History] Cyanocobalamin (B-12) [Vitamin B12] 1,000 mcg IM QMONTH 07/08/17 [History] FLUoxetine HCl [Prozac] 40 mg PO BID 07/08/17 [History] Ferrous Sulfate [Iron] 325 mg PO BID 07/08/17 [History] Furosemide [Lasix] 40 mg PO BID 07/08/17 [History] Gabapentin [Neurontin] 800 mg PO TID 07/08/17 [History] Lisinopril [Zestril] 10 mg PO DAILY 07/08/17 [History] Lovastatin [Mevacor] 20 mg PO HS 07/08/17 [History] Pioglitazone [Actos] 45 mg PO DAILY 07/08/17 [History] Sennosides [Senokot] 8.6 mg PO DAILY 07/08/17 [History] amLODIPine [Norvasc] 5 mg PO DAILY 07/08/17 [History] lamoTRIgine [Lamotrigine] 25 mg PO BID 07/08/17 [History] metFORMIN [Glucophage] 500 mg PO BID 07/08/17 [History] 3 Allergy/AdvReac Type Severity Reaction Status Date / Time vancomycin AdvReac See Verified 07/08/17 11:52 Comments All systems: reviewed and no additional remarkable complaints except as stated Exam - Constitutional Vitals: Temp Pulse Resp BP Pulse Ox 98.2 F 93 16 114/72 97 07/11/17 14:03 07/11/17 14:03 07/11/17 14:03 07/11/17 14:03 07/11/17 14:03 General appearance: cooperative, morbidly obese, no acute distress - Head Head exam: Present: atraumatic, normal inspection, normocephalic - Eye Eye exam: Present: EOMI, normal appearance, PERRL Pupils: Present: normal accommodation - ENT ENT exam: Present: mucous membranes moist - Neck Neck exam: Present: normal inspection - Respiratory Respiratory exam: Present: CTAB. Absent: rales, respiratory distress, rhonchi, wheezes - Cardiovascular Cardiovascular exam: Present: RRR, +S1, +S2 - GI/Abdominal GI/Abdominal exam: Present: distended (obese), normal bowel sounds, soft. Absent: tenderness - Extremities Exam Extremities exam: Absent: joint swelling, pedal edema, tenderness Additional comments: Chronic deformity of the right foot secondary to Charcot. Stage II ulcer noted to the plantar/lateral aspect of the left foot approx 0.5cm x 0.5cm x 0.5cm. Wound bed is moist and pink. Scant light brown drainage noted on the old dressing. No foul odor, erythema, fluctuance, or tenderness. - Neurological Exam Neurological exam: Present: alert, oriented X3, no focal deficits - Psychiatric Psychiatric exam: Present: normal affect, normal mood - Skin Skin exam: Present: dry, intact, normal color, warm Infectious Disease CN: Results - Labs CBC & Chem 7: 07/11/17 14:35 07/11/17 06:27 Cultures: Cultures 07/08/17 09:43 Anaerobic Culture - Preliminary Left Foot At this time, no anaerobic growth is present. The culture will be finalized after 5 days of incubation. 07/08/17 09:43 Wound Culture - Final Left Foot No pathogens isolated. 07/08/17 09:54 Blood Culture - Preliminary Peripheral Venipuncture No growth. 07/08/17 09:54 Blood Culture - Preliminary Peripheral Venipuncture No growth. Serology: Serology 07/11/17 Range/Units 04:00 Urine Creatinine 43 mg/dL Protein/Creatinin Ratio 0.33 H (0.00-0.20) mg/mg Urine Total Protein 14 (1-14) mg/dL Consult Discharge Plan - Plan Referrals: NONE,PCP [Primary Care Provider] - - Attending Attestation I examined this patient and my medical decision-making was reviewed with the Resident Physician. I agree with the documented findings, disposition and treatment plan as described except to the extent set forth below. Short This is an addendum to original report dictated by Rossi Chino CNP, please refer to Antonietta ramos for full details. Patient is a 46-year-old woman with past medical history mentioned above including diabetes mellitus, morbid obesity , who apparently had a trauma to her foot about 3 months ago when she scraped it with the deck board. Patient apparently has a small ulcer that was nonhealing and was seeing wound care as an outpatient. Patient was being followed at [facility]. Patient had a culture obtained which grew MRSA, Pseudomonas and enterococcus. Patient was told to come to the emergency department for evaluation. Since admission patient has been afebrile and had no SIRS criteria other than leukopenia. Patient also has elevated ESR but normal CRP. Patient tells us that she had positive ANAs in the past. Physical exam of the foot reveals a dry ulcer that is about 4-5 mm in depth with no surrounding erythema. There is no drainage. There is no foul smell. The base of the ulcer is dry. Repeat swab culture here was done and it came back negative. We are asked to evaluate the patient and make further recommendations. As for the swab culture of the ulcer of the foot, patient currently has no signs of osteomyelitis on the x-ray and clinically does not appear to be infected. I am not sure we even need to treat but if the patient is concerned, consider doing topical antibiotics for 10 days. Patient also might benefit from wound care. Patient also needs to have adequate glucose control. Her last hemoglobin A1c was 6. I am not sure why the ESR is elevated with normal CRP and why she has leukopenia. We will discuss with podiatry to see if they are okay with topical antibiotics and wound care as an outpatient or if they are concerned for osteomyelitis and wants to do further imaging. We will continue to follow closely. Patient is seeing podiatry next week, we will follow-up with her next week. I had a long discussion with the patient regarding treatment options. Clinical exam is told to unremarkable other than some serous drainage on the gauze. There is no surrounding cellulitis erythema fluctuance or anything to that extent. I spent to the patient that if her grams oral that would include Zyvox and I would have to hold her Prozac. Patient was concerned about holding her SSRI and is okay with topical treatment and follow-up with us in clinic in [address] Segovia of recommendations
[2017-07-11 14:44] LABS: Hematocrit 28.1 % (35.3-44.9)
[2017-07-11] MEDS: Acetaminophen 325 MG TABLET PO PRN (16:40)
--- NOTE | 2017-07-11 17:55 | Discharge Summary ---
Orders not resulted at time of discharge: Pending orders 07/10/17 08:51 Occult Blood,Stool [BF] Routine 07/12/17 04:00 Complete Blood Count [HEME] AM 0400 Comprehensive Metabolic Panel AM 0400 Date of Encounter: 07/11/17 Time of Encounter: 17:52 - Discharge Diagnosis (1) Diabetic foot ulcer Priority: Primary Status: Acute Qualifiers: Diabetic foot ulcer location: unspecified part of foot Diabetes mellitus type: other specified (including RICHIE) Laterality: left Non-pressure ulcer stage: unspecified non-pressure ulcer stage Qualified Code(s): E13.621 - Other specified diabetes mellitus with foot ulcer; L97.529 - Non-pressure chronic ulcer of other part of left foot with unspecified severity; L97.529 - Non-pressure chronic ulcer of other part of left foot with unspecified severity ; L97.529 - Non-pressure chronic ulcer of other part of left foot with unspecified severity; L97.529 - Non-pressure chronic ulcer of other part of left foot with unspecified severity (2) CKD (chronic kidney disease) stage 3, GFR 30-59 ml/min Priority: Secondary Status: Chronic (3) Falls Priority: Secondary Status: Acute Qualifiers: Encounter type: initial encounter Qualified Code(s): W19.XXXA - Unspecified fall, initial encounter (4) Diabetes Priority: Secondary Status: Chronic Qualifiers: Diabetes mellitus type: type 2 Diabetes mellitus long term care pharmacist insulin use: without long term care pharmacist use Diabetes mellitus complication status: with unspecified complications Qualified Code(s): E11.8 - Type 2 diabetes mellitus with unspecified complications (5) HLD (hyperlipidemia) Priority: Secondary Status: Chronic Qualifiers: Hyperlipidemia type: pure hypercholesterolemia Qualified Code(s): E78.00 - Pure hypercholesterolemia, unspecified; E78.0 - Pure hypercholesterolemia (6) HTN (hypertension) Priority: Secondary Status: Chronic Qualifiers: Hypertension type: essential hypertension Qualified Code(s): I10 - Essential (primary) hypertension (7) DVT prophylaxis Priority: Secondary Status: Acute (8) Anemia Priority: Secondary Status: Acute Qualifiers: Anemia type: iron deficiency Iron deficiency anemia type: inadequate dietary iron intake Qualified Code(s): D50.8 - Other iron deficiency anemias Hospital course: Ms. Santana is a 46 year old female w/PMH of diabetes controlled with oral antihyperglycemic medications, HLD, HTN, and CKD presents from the ED with chief complaint of chronic diabetic ulcer on base of left foot. Pt. states that wound has been present for past three months and has not been improving and is now producing foul-smelling discharge and is more painful. She has history of MRSA and Pseudomonas wound infection in the past. Pt. was being treated at [facility] previously. States she had a positive SHORTY test previously. Reports worsening fatigue, falls, malaise, and nausea. Pt. transferring care to [facility] and is in need of Wound Care, PCP, Nephrology, and other specialty coverage. Patient sees Podiatry as outpatient. Wound care and Podiatry were consulted, daily wound care was administered. She was started on IV Daptomycin because of prior acute kidney injury from Vancomycin. Blood and wound cultures were negative. She was hemodynamically stable. Patient did not have any leukocytosis or fever. A CRP level was obtained and negative. An ESR was obtained and elevated at 61, which patient states she may have an autoimmune disorder that she would like outpatient provider to work up for. She had an acute drop in hemoglobin from 9.0 baseline to 7.7 and required 1 unit PRBC and hemoglobin remained back at baseline. Infectious disease consulted. Patient foot did not appear to have any major infection during this time, and patient started on bacitracin and gentamycin ointments. IV Daptomycin was discontinued. Patient was discharged home in stable condition. - Time Spent with Patient Total time spent providing and/or coordinating discharge services: - Discharge Medications Prescriptions: Gentamicin Oint [Garamycin] 1 appl TP BID #1 tube Home Medications: Amitriptyline [Elavil] 25 mg PO HS 07/08/17 [History] Buspirone HCl [Buspar] 10 mg PO TID 07/08/17 [History] Cyanocobalamin (B-12) [Vitamin B12] 1,000 mcg IM QMONTH 07/08/17 [History] FLUoxetine HCl [Prozac] 40 mg PO BID 07/08/17 [History] Ferrous Sulfate [Iron] 325 mg PO BID 07/08/17 [History] Furosemide [Lasix] 40 mg PO BID 07/08/17 [History] Gabapentin [Neurontin] 800 mg PO TID 07/08/17 [History] Lisinopril [Zestril] 10 mg PO DAILY 07/08/17 [History] Lovastatin [Mevacor] 20 mg PO HS 07/08/17 [History] Pioglitazone [Actos] 45 mg PO DAILY 07/08/17 [History] Sennosides [Senokot] 8.6 mg PO DAILY 07/08/17 [History] amLODIPine [Norvasc] 5 mg PO DAILY 07/08/17 [History] lamoTRIgine [Lamotrigine] 25 mg PO BID 07/08/17 [History] metFORMIN [Glucophage] 500 mg PO BID 07/08/17 [History] Bacitracin OINT [Ak-Tracin] 1 appl TP BID #1 tube 07/11/17 [Rx] Gentamicin Oint [Garamycin] 1 appl TP BID #1 tube 07/11/17 [Rx] Allergies/Adverse Reactions: 3 Allergy/AdvReac Type Severity Reaction Status Date / Time vancomycin AdvReac See Verified 07/08/17 11:52 Comments Date of admission: 07/08/17 12:18 Primary care physician: PCP NONE Consults: 07/08/17 13:25 Consult to Structural Steel Painter [CONS] Routine Reason for SW Consult: Please assess patient for possible home needs for post -discharge planning. Pt. also needs a PCP that takes her insurance ([employer]). 07/08/17 13:35 Consult to Podiatry [CONS] Routine Consulting Provider: [facility] Reason for Consult: Patient has diabetic wound to base of left foot that she was previously being treated for at [facility]. Now tranferring her care here to [facility]. Pt. is concerned for continuation of care so wound does not progress. Pt. is diabetic who previously took insulin but is now on oral medications only. Call Completed: Yes 07/08/17 13:37 Consult to Wound Care [CONS] Routine Reason for Consult: Patient has diabetic wound to base of left foot that she was previously being treated for at [facility]. Now tranferring her care here to [facility]. Pt. is concerned for continuation of care so wound does not progress. Pt. is diabetic who previously took insulin but is now on oral medications only. Recommendations appreciated for wound assessment and daily wound care. Call Completed: No 07/11/17 10:16 Consult to Infectious Diseases [CONS] Routine Consulting Provider: Infectious Disease [facility] Reason for Consult: Foot ulcer Call Completed: Yes 07/11/17 10:19 Consult to Invasive Line Access Team [CONS] Routine Reason for Consult: Picc Line Insertion Line Type: PICC PICC line indications: intermediate manager Med/Antibiotic Discharging clinician: Philly Segovia - Constitutional Vitals: Temp Pulse Resp BP Pulse Ox 98.2 F 93 16 114/72 97 07/11/17 14:03 07/11/17 14:03 07/11/17 14:03 07/11/17 14:03 07/11/17 14:03 General appearance: Present: cooperative, A&O X 3, morbidly obese, pleasant, no acute distress, answers questions appropriately - Head Head exam: Present: atraumatic, normocephalic - Eye Eye exam: Present: PERRL, conjuntiva pink, sclera anicteric Pupils: Present: PERRL - Neck Neck exam general surgery: Present: supple, trachea midline. Absent: lymphadenopathy - Respiratory Respiratory exam: Present: CTAB. Absent: accessory muscle use, rales, rhonchi, wheezes - Cardiovascular Cardiovascular exam: Present: RRR, +S1, +S2. Absent: diastolic murmur, gallop, rubs, systolic murmur - GI/Abdominal GI/Abdominal exam: Present: normal bowel sounds, soft, no peritoneal signs. Absent: distended, tenderness - Extremities Exam Extremities exam: Present: warm, radial pulses palpable and symmetrical. Absent : calf tenderness, cyanotic, pedal edema Additional comments: Left foot ulcer on plantar surface without any active drainage or bleeding. No surrounding erythema, no surrounding edema. - Neurological Exam Neurological exam: Present: CN II-XII intact, oriented X3, no focal deficits. Absent: pronater drift, facial droop, speech deficit - Skin Skin exam: Present: dry, intact - Patient Status Disposition: Home, Self-Care Condition: Fair - Discharge Instructions Follow Up With: NONE,PCP [Primary Care Provider] - - Diet and Activity Activity: other (As per Podiatry recommendations with foot treatment)
[2017-08-03] MEDS ORDERED: Cyanocobalamin (B-12) 1,000 MCG/ML VIAL IM SCH (09:00)
== END 2017-07-11 19:04 | disposition home or self-care (01) ==
LOC: 3ANU 09:03 → EMEROO 09:03 → 3ANU 13:28
PROVIDERS: ADMIT Hospitalist; ATTEND Student in an Organized Health Care Education/Training Program

== ENCOUNTER 2019-02-06 17:29 | Inpatient (IN) ==
[2019-02-06] MEDS ORDERED: 0.9 % Sodium Chloride 1,000 ML IVC ONE (17:47)
[2019-02-06] MEDS ORDERED: Piperacillin/Tazobactam 3.375 GM in Water for inj. (sterile) 20 ML IVP ONE (18:04)
[2019-02-06 18:05] LABS: Basophils % 0.4 %; Eosinophils # 0.1 K/mcL (0.0-0.6); Eosinophils % 1.3 %; Hematocrit 28.8 % (35.3-44.9); Hemoglobin 9.3 g/dL (11.5-15.4); Immature Granulocytes % 0.2 % (0-4); Lymphocytes # 0.7 K/mcL (0.6-4.6); Lymphocytes % 13.3 %; Mean Corpuscular HGB Conc 32.3 g/dL (31.6-35.5); Mean Corpuscular Hemoglobin 29.1 pg (28.0-33.3); Mean Platelet Volume 10.4 fL (9.4-12.4); Monocytes # 0.5 K/mcL (0.0-1.3); Monocytes % 9.4 %; Platelet Count 368 K/mcL (140-400); Segmented Neutrophils % 75.4 %; White Blood Count 5.3 K/mcL (4.3-11.1)
[2019-02-06 18:30] LABS: Calcium 8.5 mg/dL (8.6-10.3); Potassium 4.8 mEq/L (3.5-5.1)
[2019-02-06] MEDS ORDERED: Naloxone 0.4 MG/ML INJ IVP PRN (21:17)
[2019-02-06] MEDS ORDERED: traMADol 50 MG TABLET PO PRN (21:23)
[2019-02-06] MEDS: *HR* Heparin 5,000 UNIT/ML VIAL SQ SCH (23:48)
[2019-02-06] MEDS: Gabapentin 300 MG CAPSULE PO SCH (23:48)
[2019-02-07 03:55] LABS: Basophils % 0.4 %; Eosinophils # 0.1 K/mcL (0.0-0.6); Eosinophils % 1.3 %; Hematocrit 25.9 % (35.3-44.9); Hemoglobin 8.1 g/dL (11.5-15.4); Immature Granulocytes % 0.2 % (0-4); Immature Reticulocyte % 15.1 % (11.0-38.0); Lymphocytes # 0.6 K/mcL (0.6-4.6); Lymphocytes % 12.3 %; Mean Corpuscular HGB Conc 31.3 g/dL (31.6-35.5); Mean Corpuscular Volume 92.8 fL (83.0-100.0); Mean Platelet Volume 10.5 fL (9.4-12.4); Monocytes # 0.5 K/mcL (0.0-1.3); Monocytes % 11.9 %; Neutrophils # 3.4 K/mcL (1.6-8.9); Platelet Count 310 K/mcL (140-400); Red Blood Count 2.79 M/mcL (3.82-4.97); Retculocyte # 0.03 M/mcL (0.05-0.10); Reticulocyte % 1.2 % (1.6-2.8); Segmented Neutrophils % 73.9 %; White Blood Count 4.5 K/mcL (4.3-11.1)
[2019-02-07 03:56] LABS: INR 1.2; Prothrombin Time 13.2 Seconds (9.4-12.1)
[2019-02-07 04:13] LABS: Albumin 3.5 g/dL (3.5-5.7); Albumin/Globulin Ratio 1.3 (1.1-2.2); Bilirubin,Total 0.3 mg/dL (0.3-1.0); Calcium 8.4 mg/dL (8.6-10.3); Chol/HDL Ratio 2.9 (0-4.9); Globulin 2.8 g/dL (2.4-3.5); Magnesium 1.8 mg/dL (1.6-2.6); Phosphorous 3.6 mg/dL (2.7-4.5); Total Protein 6.3 g/dL (6.4-8.9)
[2019-02-07 04:26] LABS: Thyroid Stimulating Hormone 1.109 mcIU/mL (0.340-5.600)
[2019-02-07 04:36] LABS: Folate 12.2 ng/mL (3.0-16.0)
[2019-02-07 04:47] LABS: Bilirubin,Urine Negative (Negative); Blood,Urine Negative (Negative); Clarity,Urine Cloudy (Clear); Color,Urine Yellow (Yellow); Glucose,Urine (UA) Normal (Normal); Ketones,Urine Negative (Negative); Leukocyte Esterase,Urine Negative (Negative); Nitrite,Urine Negative (Negative); PH,Urine 5.5 pH Units (5.0-8.0); Protein,Urine Negative (Neg-Trace); Specific Gravity,Urine 1.015 (1.010-1.025); Urobilinogen,Urine Normal (Normal)
[2019-02-07 04:50] LABS: Bacteria,Urine None Seen per hpf (None-Few); Hyaline Casts,Urine None Seen per lpf (None-Few); RBC,Urine 0-3 per hpf (0-3); Squamous Epithelial Cell,Urine Many per lpf (None-Few); WBC,Urine 0-3 per hpf (0-3)
[2019-02-07] MEDS: *HR* Heparin 5,000 UNIT/ML VIAL SQ SCH ×3 (05:15→21:41)
[2019-02-07] MEDS ORDERED: DAPTOMYCIN IVPB SCH (07:00)
[2019-02-07] MEDS ORDERED: SODIUM CHLORIDE 0.9% IVPB SCH (07:00)
[2019-02-07] MEDS: Piperacillin/Tazobactam 3.375 GM in 0.9 % Sodium Chloride Mini Bag 100 ML IVPB SCH ×3 (10:24→23:40)
[2019-02-07] MEDS ORDERED: Melatonin 3 MG TABLET PO PRN (14:28)
[2019-02-07] MEDS ORDERED: 0.9 % Sodium Chloride 1,000 ML IVC SCH (14:30)
[2019-02-07] MEDS ORDERED: ARIPiprazole 2 MG TABLET PO ONE (15:14)
[2019-02-07] MEDS: FLUoxetine 20 MG CAPSULE PO SCH (15:22)
[2019-02-07] MEDS: Gabapentin 300 MG CAPSULE PO SCH (21:41)
[2019-02-08] MEDS: *HR* Heparin 5,000 UNIT/ML VIAL SQ SCH ×3 (05:11→22:10)
[2019-02-08 06:35] LABS: Basophils % 1.2 %; Eosinophils # 0.1 K/mcL (0.0-0.6); Hematocrit 28.5 % (35.3-44.9); Hemoglobin 8.9 g/dL (11.5-15.4); Immature Granulocytes % 0.3 % (0-4); Lymphocytes # 0.9 K/mcL (0.6-4.6); Lymphocytes % 28.7 %; Mean Corpuscular HGB Conc 31.2 g/dL (31.6-35.5); Mean Corpuscular Hemoglobin 28.4 pg (28.0-33.3); Mean Corpuscular Volume 91.1 fL (83.0-100.0); Mean Platelet Volume 10.9 fL (9.4-12.4); Monocytes # 0.4 K/mcL (0.0-1.3); Monocytes % 10.7 %; Neutrophils # 1.8 K/mcL (1.6-8.9); Platelet Count 398 K/mcL (140-400); Red Blood Count 3.13 M/mcL (3.82-4.97); Red Cell Distribution Width 13.1 % (11.5-14.5); Segmented Neutrophils % 56.1 %; White Blood Count 3.3 K/mcL (4.3-11.1)
[2019-02-08 06:54] LABS: Calcium 8.9 mg/dL (8.6-10.3); Potassium 4.9 mEq/L (3.5-5.1)
[2019-02-08] MEDS: Piperacillin/Tazobactam 3.375 GM in 0.9 % Sodium Chloride Mini Bag 100 ML IVPB SCH ×2 (08:15→16:57)
[2019-02-08] MEDS: FLUoxetine 20 MG CAPSULE PO SCH (08:16)
[2019-02-08] MEDS ORDERED: ARIPiprazole 2 MG TABLET PO SCH (09:00)
[2019-02-08] MEDS ORDERED: Furosemide 40 MG TABLET PO SCH (09:00)
[2019-02-08] MEDS ORDERED: Lidocaine -MPF 2% 2 ML VIAL ONE (11:50)
[2019-02-08] MEDS ORDERED: *HR* Midazolam HCl 2 MG/2 ML VIAL ONE (11:51)
[2019-02-08] MEDS ORDERED: Propofol 500 MG/50 ML INFUS..BTL ONE (11:54)
[2019-02-08] MEDS ORDERED: *HR* Metoprolol 5 MG/5 ML VIAL IVP ONE (12:37)
[2019-02-08] MEDS ORDERED: Calcium Gluconate 1,000 MG/10 ML VIAL ONE (12:41)
[2019-02-08] MEDS ORDERED: *HR* PHENYLEPHRINE 1,000 MCG/10 ML SYRINGE IVP ONE (12:43)
[2019-02-08] MEDS ORDERED: Ropivicaine 0.25% 20 ml Syringe INTRAART ONE (12:50)
[2019-02-08] MEDS ORDERED: Naloxone 0.4 MG/ML INJ IVP PRN (13:54)
[2019-02-08] MEDS ORDERED: Melatonin 3 MG TABLET PO PRN (13:54)
[2019-02-08] MEDS ORDERED: ARIPiprazole 2 MG TABLET PO ONE (14:28)
[2019-02-08] MEDS: traMADol 50 MG TABLET PO PRN (20:49)
[2019-02-08] MEDS ORDERED: Gabapentin 300 MG CAPSULE PO SCH (21:00)
[2019-02-08] MEDS ORDERED: Gabapentin 100 MG CAPSULE PO ONE (21:03)
[2019-02-09] MEDS: Piperacillin/Tazobactam 3.375 GM in 0.9 % Sodium Chloride Mini Bag 100 ML IVPB SCH ×3 (00:29→17:18)
[2019-02-09] MEDS: *HR* Heparin 5,000 UNIT/ML VIAL SQ SCH ×3 (05:04→21:45)
[2019-02-09 06:01] LABS: Basophils % 0.9 %; Eosinophils # 0.2 K/mcL (0.0-0.6); Eosinophils % 4.7 %; Hematocrit 26.2 % (35.3-44.9); Immature Granulocytes % 0.3 % (0-4); Lymphocytes # 0.9 K/mcL (0.6-4.6); Lymphocytes % 29.3 %; Mean Corpuscular HGB Conc 30.5 g/dL (31.6-35.5); Mean Corpuscular Hemoglobin 28.1 pg (28.0-33.3); Mean Corpuscular Volume 91.9 fL (83.0-100.0); Mean Platelet Volume 10.4 fL (9.4-12.4); Monocytes # 0.5 K/mcL (0.0-1.3); Monocytes % 14.6 %; Neutrophils # 1.6 K/mcL (1.6-8.9); Platelet Count 351 K/mcL (140-400); Red Blood Count 2.85 M/mcL (3.82-4.97); Red Cell Distribution Width 12.9 % (11.5-14.5); Segmented Neutrophils % 50.2 %; White Blood Count 3.2 K/mcL (4.3-11.1)
[2019-02-09 06:21] LABS: Calcium 8.8 mg/dL (8.6-10.3); Potassium 4.7 mEq/L (3.5-5.1)
[2019-02-09] MEDS: ARIPiprazole 2 MG TABLET PO SCH (07:49)
[2019-02-09] MEDS: Furosemide 40 MG TABLET PO SCH (07:49)
[2019-02-09] MEDS: Gabapentin 400 MG CAPSULE PO SCH ×3 (07:49→20:38)
[2019-02-09] MEDS: FLUoxetine 20 MG CAPSULE PO SCH (07:49)
[2019-02-10] MEDS: Piperacillin/Tazobactam 3.375 GM in 0.9 % Sodium Chloride Mini Bag 100 ML IVPB SCH ×3 (00:25→15:16)
[2019-02-10] MEDS: *HR* Heparin 5,000 UNIT/ML VIAL SQ SCH ×3 (05:02→23:22)
[2019-02-10 07:48] LABS: Basophils % 0.8 %; Eosinophils # 0.1 K/mcL (0.0-0.6); Eosinophils % 3.6 %; Hematocrit 28.9 % (35.3-44.9); Immature Granulocytes % 0.3 % (0-4); Lymphocytes # 1.1 K/mcL (0.6-4.6); Lymphocytes % 27.6 %; Mean Corpuscular HGB Conc 31.1 g/dL (31.6-35.5); Mean Corpuscular Hemoglobin 28.8 pg (28.0-33.3); Mean Corpuscular Volume 92.3 fL (83.0-100.0); Mean Platelet Volume 10.7 fL (9.4-12.4); Monocytes # 0.5 K/mcL (0.0-1.3); Monocytes % 11.9 %; Neutrophils # 2.2 K/mcL (1.6-8.9); Platelet Count 393 K/mcL (140-400); Red Blood Count 3.13 M/mcL (3.82-4.97); Red Cell Distribution Width 12.9 % (11.5-14.5); Segmented Neutrophils % 55.8 %; White Blood Count 3.9 K/mcL (4.3-11.1)
[2019-02-10] MEDS: Furosemide 40 MG TABLET PO SCH (08:25)
[2019-02-10] MEDS: Gabapentin 400 MG CAPSULE PO SCH ×3 (08:25→20:20)
[2019-02-10] MEDS: ARIPiprazole 2 MG TABLET PO SCH (08:25)
[2019-02-10] MEDS: FLUoxetine 20 MG CAPSULE PO SCH (08:25)
[2019-02-10 09:26] LABS: Potassium 4.6 mEq/L (3.5-5.1)
[2019-02-10] MEDS: traMADol 50 MG TABLET PO PRN (20:19)
[2019-02-11] MEDS: Piperacillin/Tazobactam 3.375 GM in 0.9 % Sodium Chloride Mini Bag 100 ML IVPB SCH ×3 (00:33→17:12)
[2019-02-11 01:16] LABS: Hematocrit 25.8 % (35.3-44.9); Hemoglobin 8.3 g/dL (11.5-15.4); Mean Corpuscular HGB Conc 32.2 g/dL (31.6-35.5); Mean Corpuscular Hemoglobin 28.6 pg (28.0-33.3); Mean Platelet Volume 10.5 fL (9.4-12.4); Platelet Count 346 K/mcL (140-400); Red Cell Distribution Width 12.7 % (11.5-14.5); White Blood Count 3.6 K/mcL (4.3-11.1)
[2019-02-11 01:35] LABS: Calcium 8.2 mg/dL (8.6-10.3); Potassium 4.3 mEq/L (3.5-5.1)
[2019-02-11] MEDS: *HR* Heparin 5,000 UNIT/ML VIAL SQ SCH ×3 (05:02→22:02)
[2019-02-11] MEDS ORDERED: Ringers Solution, Lactated 1,000 ML IVC SCH (08:15)
[2019-02-11] MEDS: Furosemide 40 MG TABLET PO SCH (10:32)
[2019-02-11] MEDS: Gabapentin 400 MG CAPSULE PO SCH ×3 (10:33→20:52)
[2019-02-11] MEDS: FLUoxetine 20 MG CAPSULE PO SCH (10:33)
[2019-02-11] MEDS: ARIPiprazole 2 MG TABLET PO SCH (10:33)
[2019-02-11] MEDS: traMADol 50 MG TABLET PO PRN (17:13)
[2019-02-12] MEDS: Piperacillin/Tazobactam 3.375 GM in 0.9 % Sodium Chloride Mini Bag 100 ML IVPB SCH ×2 (00:35→09:31)
[2019-02-12 05:00] LABS: Hematocrit 26.6 % (35.3-44.9); Hemoglobin 8.5 g/dL (11.5-15.4); Mean Corpuscular Hemoglobin 28.3 pg (28.0-33.3); Mean Corpuscular Volume 88.7 fL (83.0-100.0); Mean Platelet Volume 10.3 fL (9.4-12.4); Platelet Count 352 K/mcL (140-400); Red Cell Distribution Width 12.8 % (11.5-14.5); White Blood Count 2.9 K/mcL (4.3-11.1)
[2019-02-12 05:18] LABS: Calcium 8.3 mg/dL (8.6-10.3); Potassium 4.2 mEq/L (3.5-5.1)
[2019-02-12] MEDS: *HR* Heparin 5,000 UNIT/ML VIAL SQ SCH (06:22)
[2019-02-12] MEDS: Gabapentin 400 MG CAPSULE PO SCH (09:30)
[2019-02-12] MEDS: ARIPiprazole 2 MG TABLET PO SCH (09:30)
[2019-02-12] MEDS: Furosemide 40 MG TABLET PO SCH (09:31)
[2019-02-12] MEDS: FLUoxetine 20 MG CAPSULE PO SCH (09:31)
[2019-02-12 10:34] VITALS: BP 117/72
[2019-02-12] MEDS ORDERED: levoFLOXacin 750 MG TABLET PO ONE (13:32)
[2019-02-13] MEDS ORDERED: levoFLOXacin 750 MG TABLET PO ONE (14:00)
== END 2019-02-12 14:23 | disposition home or self-care (01) | DRG 623 ==
LOC: EMEROOARM 17:29 → 3ANU 17:29 → SUATTDRO 21:20 → 3ANU 21:38
PROVIDERS: ADMIT Internal Medicine; ATTEND Internal Medicine